=== PATIENT | male | born 1960 ===

== ENCOUNTER 2018-03-26 15:20 | Inpatient (IN) | payer MEDICAID ==
[2018-03-26] MEDS ORDERED: Sodium Chloride 0.9% 1,000 ML IV STA (16:32)
[2018-03-26] MEDS ORDERED: DiphenhydrAMINE 50 mg/ml Inj IV STA (16:32)
[2018-03-26] MEDS ORDERED: DiphenhydrAMINE 50 mg/ml Inj ONE (16:42)
[2018-03-26 16:48] LABS: BASO # 0.1 K/uL (0.0-0.2); BASO % 0.8 % (0.0-2.0); EOS # 0.2 K/uL (0.0-0.7); EOS % 2.9 % (0.0-4.0); HEMOGLOBIN 15.7 g/dL (12.0-18.0); LYMPH # 1.7 K/uL (1.0-4.3); LYMPH % 20.3 % (20.0-40.0); MEAN CELL VOLUME 85.3 fl (80.0-94.0); MEAN CORPUSCULAR HEMOGLOBIN 30.5 pg (27.0-31.0); MEAN CORPUSCULAR HGB CONC 35.8 g/dL (33.0-37.0); MEAN PLATELET VOLUME 8.7 fl (7.2-11.7); MONO # 0.6 K/uL (0.0-0.8); MONO % 6.8 % (0.0-10.0); NEUT # 5.7 K/uL (1.8-7.0); NEUT % 69.2 % (50.0-75.0); NRBC % 0.2 % (0.0-0.0); RBC 5.14 Mil/uL (4.40-5.90); RED CELL DISTRIBUTION WIDTH 13.1 % (11.5-14.5); WHITE BLOOD COUNT 8.2 K/uL (4.8-10.8)
[2018-03-26 16:56] LABS: BLOOD UREA NITROGEN 11 mg/dl (9-20); GFR AFRICAN-AMERICAN > 60; GFR NON-AFRICAN AMERICAN > 60
--- NOTE | 2018-03-26 17:12 | ED PDOC ---
"HPI: Headache Chief Complaint (Provider): headache History Per: Patient History/Exam Limitations: no limitations Onset/Duration Of Symptoms: Days (x3 weeks) Current Symptoms Are (Timing): Still Present Additional Complaint(s): Thad Garcia is a 58 year old male, with a past medical history of HTN, kidney stones, and migraines, who presents to the emergency department complaining of headache, and dizziness onset for x3 weeks associated with left sided arm numbness. Patient reports headache has been ongoing for x3 weeks, almost every day, it comes and goes and mostly on the left side associated with neck and back pain. Patient states last night he felt left arm numbness but no weakness. He also reports pain in right leg going on for x3 weeks. Patient further states dizziness worsens when he walks. Per , patient has been falling recently but with no head injury. He reports b/l ear ache but denies any chest pain, palpitations, fever, or chills. No further medical complaints. PMD: Salina Gonzalez J <Karen Hewitt A - Last Filed: 03/27/18 15:11> <Mally Perdue Y - Last Filed: 03/28/18 15:03> <Marley Stein J - Last Filed: 03/29/18 11:12> Time Seen by Provider: 03/26/18 16:20 Chief Complaint (Nursing): Headache Past Medical History Reviewed: Historical Data, Nursing Documentation, Vital Signs Vital Signs: Last Vital Signs Temp 98.4 F 03/26/18 15:36 Pulse 102 H 03/26/18 15:36 Resp 20 03/26/18 15:36 BP 152/92 H 03/26/18 15:36 Pulse Ox 98 03/26/18 15:36 - Medical History PMH: HTN, Migraine Other PMH: kidney stones - Surgical History Surgical History: No Surg Hx - Family History Family History: States: No Known Family Hx <Karen Hewitt - Last Filed: 03/27/18 15:11> Vital Signs: Last Vital Signs Temp 97.8 F 03/26/18 18:55 Pulse 68 03/26/18 21:58 Resp 17 03/26/18 21:58 BP 129/80 03/26/18 21:58 Pulse Ox 97 03/26/18 21:58 <Mally Perdue Y - Last Filed: 03/28/18 15:03> Vital Signs: Last Vital Signs Temp 97.7 F 03/26/18 22:46 Pulse 66 03/26/18 22:46 Resp 22 03/26/18 22:46 BP 154/88 H 03/26/18 22:46 Pulse Ox 100 03/26/18 22:46 <EmilMarley Carrasco - Last Filed: 03/29/18 11:12> - Home Medications Home Medications: Ambulatory Orders Medication Instructions Recorded Unobtainable 03/26/18 - Allergies Allergies/Adverse Reactions: Allergies Allergy/AdvReac Type Severity Reaction Status Date / Time No Known Allergies Allergy Verified 03/26/18 15:36 Review of Systems ROS Statement: Except As Marked, All Systems Reviewed And Found Negative Constitutional: Negative for: Fever ENT: Positive for: Ear Pain (b/l) Cardiovascular: Negative for: Chest Pain, Palpitations Musculoskeletal: Positive for: Neck Pain, Back Pain, Leg Pain (right) Neurological: Positive for: Numbness (left arm), Headache, Dizziness. Negative for: Weakness <Karen Hewitt - Last Filed: 03/27/18 15:11> Physical Exam - Reviewed Nursing Documentation Reviewed: Yes Vital Signs Reviewed: Yes - Physical Exam Appears: Positive for: Well (comfortable), No Acute Distress Head Exam: Positive for: ATRAUMATIC, NORMOCEPHALIC Skin: Positive for: Normal Color, Warm, Dry Eye Exam: Positive for: Normal appearance, EOMI, PERRL. Negative for: Nystagmus ENT: Positive for: Normal ENT Inspection Neck: Positive for: Painless ROM. Negative for: Normal (diffused tenderness on palpation paraspinally ) Cardiovascular/Chest: Positive for: Regular Rate, Rhythm. Negative for: Murmur Respiratory: Positive for: Normal Breath Sounds. Negative for: Respiratory Distress Gastrointestinal/Abdominal: Positive for: Normal Exam, Soft. Negative for: Tenderness Back: Positive for: Normal Inspection. Negative for: L CVA Tenderness, R CVA Tenderness, Vertebral Tenderness Extremity: Positive for: Normal ROM (upper and lower extremities). 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 Negative for: Motor/Sensory Deficits <Karen Hewitt A - Last Filed: 03/27/18 15:11> - Laboratory Results Result Diagrams: 03/27/18 05:55 03/27/18 05:55 - ECG O2 Sat by Pulse Oximetry: 98 (RA) Pulse Ox Interpretation: Normal <Karen Hewitt A - Last Filed: 03/27/18 15:11> - Laboratory Results Result Diagrams: 03/28/18 05:00 03/28/18 05:00 <Nette,Doloressonny Y - Last Filed: 03/28/18 15:03> - Laboratory Results Result Diagrams: 03/29/18 04:30 03/29/18 04:30 <Marley Stein - Last Filed: 03/29/18 11:12> Medical Decision Making Medical Decision Making: Initial Impression: headache, back pain, left arm numbness, vertigo. Differential includes: migraines, benign positional vertigo, cerebellar CVA, musculoskeletal pain Initial Plan: --Head w/o contrast [CT] --EKG --BMP --CMP --Troponin I --CBC w/ differential --Benadryl 25 mg IV --Toradol 30 mg IVP --Antivert 25 mg PO --Reglan 10 mg IVP --Sodium Chloride 1,000 ml 1,000 mls/hr 18:[address] FINDINGS: HEMORRHAGE: No intracranial hemorrhage. BRAIN: There is a ill-defined heterogeneous on mixed attenuation lesion in the right temporal lobe that is of uncertain etiology does associated with a very large amount of vasogenic edema that extends throughout most of the right cerebral hemisphere to the convexity. Findings are of uncertain etiology though possibility of a high-grade primary brain tumor must be considered. Followup pre and post-contrast MRI of the brain recommended for further evaluation. . These changes exert considerable surrounding mass effect with overlying sulcal effacement and compression of the right lateral ventricle which is shifted across midline with septum pellucidum. Midline shift estimated at approximately 14 mm. . Impending uncal herniation. Dilatation of the left lateral ventricle likely due to partial obstruction at the level of the left foramen of Monro. VENTRICLES: As above CALVARIUM: There are no acute calvarial fractures PARANASAL SINUSES: Unremarkable as visualized. No significant inflammatory changes. MASTOID AIR CELLS: Unremarkable as visualized. No inflammatory changes. OTHER FINDINGS: None. IMPRESSION: There is an apparent heterogeneous lesion in the right temporal lobe which is associate with a very large amount of vasogenic white matter edema that extends superiorly to the level of the vertex. Findings are of uncertain etiology however high-grade primary brain tumor should be excluded. . Infection on would be less likely to reduce the amount of vasogenic edema that is present. Pre and post-contrast MRI of the brain recommended for further evaluation. . There is considerable surrounding mass effect with shift of the midline from right to left estimated approximately 14 mm. . Impending uncal herniation. Findings discussed with Dr. Hewitt at approximately 6:10 p.m. with written down and read back verification. 18:[address] Bay who recommends getting an MRI and admitting patient. No interventions have been recommended at this time. 18:46 Dr. Watt consulted and agrees with plan to request MRI and admit to hospital. He recommends giving Keppra and decadron. He agrees patient is table for telemetry given chronic symptoms. Dr. Clemons also agrees to admit patient. Dr. Gonzalez was contacted 3 times on 2 phone numbers but lines were busy. Scribe Attestation: Documented by Keshawn Fernandez and Miki Hamilton, acting as a scribe for Karen Hewitt MD Provider Scribe Attestation: All medical record entries made by the Scribe were at my direction and personally dictated by me. I have reviewed the chart and agree that the record accurately reflects my personal performance of the history, physical exam, medical decision making, and the department course for this patient. I have also personally directed, reviewed, and agree with the discharge instructions and disposition. <Karen Hewitt - Last Filed: 03/27/18 15:11> Disposition - Patient ED Disposition Is Patient to be Admitted: Yes Discussed With : Ceci Clemons Doctor Will See Patient In The: Hospital Counseled Patient/Family Regarding: Studies Performed, Diagnosis - Disposition Disposition Time: 18:00 - Pt Status Changed To: Hospital Disposition Of: Inpatient - Admit Certification Admit to Inpatient:: After my assessment, the patient will require hospitalization for at least two midnights. This is because of the severity of symptoms shown, intensity of services needed, and/or the medical risk in this patient being treated as an outpatient. - POA Present On Arrival: None <Karen Hewitt - Last Filed: 03/27/18 15:11> - Patient ED Disposition Is Patient to be Admitted: No - Disposition Disposition: Routine/Home Disposition Time: 22:14 <Mally Perdue - Last Filed: 03/28/18 15:03> <Marley Stein - Last Filed: 03/29/18 11:12> - Clinical Impression Clinical Impression: Brain mass, Severe headache - Disposition Condition: FAIR Addendum Addendum: answered questions to pt and family re the findings on CT. made arrangements for pt to be admitted to icu. 03/26/18 22:10 20:33 MRI FINDINGS: BRAIN: 3 x 4.4 cm right anterior temporal enhancing mass with associated edema with mass effect and 1.4 cm right to left midline shift. VENTRICLES: left lateral ventricle is asymmetrically enlarged BONES/JOINTS: Unremarkable. SINUSES: Unremarkable as visualized. No acute sinusitis. MASTOID AIR CELLS: Unremarkable as visualized. No mastoid effusion. ORBITS: Unremarkable as visualized. IMPRESSION: [place] DAVEORIO | Preliminary Radiology Report EXTENSION COURSE COORDINATOR (QA) DISCREPANCY? If there is a discrepancy between the preliminary and final interpretation, please notify [facility] via [email or web address]. If you do not have access to our QA portal, call our QA team at [phone] CONFIDENTIALITY STATEMENT This report is intended only for the use of the referring physician, and only in accordance with law, If you received this in error, call [phone] Page 2 of 2 3 x 4.4 cm right anterior temporal enhancing mass with associated edema with mass effect and 1.4 cm right to left midline shift. 20:53 Patient and family were informed about diagnosis. Patient was upgraded to ICU. Dr. Clemons and Dr. Pitt were consulted about patient. 22:13 Upon provider reevaluation patient is feeling better, is medically stable, and requires no further treatment in the ED at this time. Counseling was provided and all questions were answered regarding diagnosis. There is agreement to discharge plan. Return if symptoms persist or worsen. <Mally Perdue Y - Last Filed: 03/28/18 15:03> Addendum: 20:[address] Herrera, neurosurgery head of loss prevention, who look at MRI and believes no surgical intervention at this time. Agree with prior plan for steroids and keppra and patient to be admitted for workup and further neuro checks. Informed patient will go to ICU. 03/26/18 23:40 PLEASE NOTE: The statement above was written by Tonja under my name. However it was intended to be written for Dr Hewitt. I was not involved in the care of this patient 03/29/18 11:11 <Marley Stein J - Last Filed: 03/29/18 11:12>"
--- NOTE | 2018-03-26 18:08 | CT ---
PROCEDURE: CT HEAD WITHOUT CONTRAST. HISTORY: Dizziness COMPARISON: None available. TECHNIQUE: Axial computed tomography images were obtained through the head/brain without intravenous contrast. Radiation dose: Total exam DLP = 1154.4 mGy-cm. This CT exam was performed using one or more of the following dose reduction techniques: Automated exposure control, adjustment of the mA and/or kV according to patient size, and/or use of iterative reconstruction technique. FINDINGS: HEMORRHAGE: No intracranial hemorrhage. BRAIN: There is a ill-defined heterogeneous on mixed attenuation lesion in the right temporal lobe that is of uncertain etiology does associated with a very large amount of vasogenic edema that extends throughout most of the right cerebral hemisphere to the convexity. Findings are of uncertain etiology though possibility of a high-grade primary brain tumor must be considered. Followup pre and post-contrast MRI of the brain recommended for further evaluation. . These changes exert considerable surrounding mass effect with overlying sulcal effacement and compression of the right lateral ventricle which is shifted across midline with septum pellucidum. Midline shift estimated at approximately 14 mm. . Impending uncal herniation. Dilatation of the left lateral ventricle likely due to partial obstruction at the level of the left foramen of Monro. VENTRICLES: As above CALVARIUM: There are no acute calvarial fractures PARANASAL SINUSES: Unremarkable as visualized. No significant inflammatory changes. MASTOID AIR CELLS: Unremarkable as visualized. No inflammatory changes. OTHER FINDINGS: None. IMPRESSION: There is an apparent heterogeneous lesion in the right temporal lobe which is associate with a very large amount of vasogenic white matter edema that extends superiorly to the level of the vertex. Findings are of uncertain etiology however high-grade primary brain tumor should be excluded. . Infection on would be less likely to reduce the amount of vasogenic edema that is present. Pre and post-contrast MRI of the brain recommended for further evaluation. . There is considerable surrounding mass effect with shift of the midline from right to left estimated approximately 14 mm. . Impending uncal herniation. Findings discussed with Dr. Hewitt at approximately 6:10 p.m. with written down and read back verification.
[2018-03-26] MEDS ORDERED: levETIRAcetam 500 MG in Sodium Chloride 0.9% 100 ML IVPB ONE (18:30)
[2018-03-26] MEDS ORDERED: Dexamethasone 10 MG in Sodium Chloride 0.9% 50 ML IV ONE (18:30)
[2018-03-26] MEDS ORDERED: Gadodiamide 287 MG/ML VIAL (15ML) IV ONE (19:01)
--- NOTE | 2018-03-26 21:06 | CP.PCM.CON ---
History of Present Illness - History of Present Illness History of Present Illness: Attending: Dr Kaci KNOWLESD: charlene Gonzalez MD Reason for consult: Critical care management The Patient was seen and examined in the ED HPI: The Hx was obtained from the Patient's family, the patient and after review of the medical records. He is a 58 years old male with hx of HTN , Migraine and arthritis of the right knee. He comes with 3-4 months of worsening headaches around the left temperal and occipital regions, with dizziness worse on ambulation, ringing in both ears and unsteady gait because of his right leg being unsteady causing him to fall. On the night prior to this admission, his left upper extremity became numb and weak. This weakness resolved before coming to the ED today. There is no hx of head injury, no chest pain although he refers diffuse abdominal pains, no fever, chills PMH: HTN; Migraine; Kidney stone; Arthritis of the right knee; Osteopenia PSH: lithotripsy left kidney, SH: Never Smoked; No Alcohol; no illegal drug use FH: States: No known family history Allergies: NKDA Medications: Denies Review of Systems - Constitutional Constitutional: Frequent Falls, Headache, Weakness. absent: Fever, Lethargy, Weight Loss - EENT Eyes: Requires Corrective Lenses. absent: Itchy Eyes, Loss of Peripheral Vision , Photophobia, Sees Flashes Ears: Dizziness. absent: Decreased Hearing, Ear Discharge, Ear Pain, Tinnitus Nose/Mouth/Throat: absent: Epistaxis, Nasal Congestion, Nasal Discharge - Respiratory Respiratory: absent: Cough, Dyspnea, Wheezing, Snoring, Stridor - Gastrointestinal Gastrointestinal: absent: Constipation, Diarrhea, Nausea, Vomiting - Genitourinary Genitourinary: absent: Dysuria, Flank Pain, Hematuria, Urinary Frequency, Urinary Hesitance - Musculoskeletal Musculoskeletal: Arthralgias, Joint Swelling, Muscle Weakness - Integumentary Integumentary: absent: Pruritus, Rash, Skin Ulcer, Sores, Striae, Swelling - Neurological Neurological: Dizziness, Frequent Falls, Headaches, Vertigo, Weakness. absent: Confusion, Focal Weakness - Psychiatric Psychiatric: absent: Anxiety, Depression, Panic Attacks - Endocrine Endocrine: absent: Palpitations, Polydipsia, Polyphagia, Polyuria - Hematologic/Lymphatic Hematologic: absent: Easy Bleeding, Easy Bruising Past Patient History - Past Social History Smoking Status: Never Smoked Chewing Tobacco Use: No Cigar Use: No Alcohol: None Drugs: Denies Home Situation {Lives}: With Family - CARDIAC Hx Hypertension: Yes - PULMONARY Hx Respiratory Disorders: No - NEUROLOGICAL Hx Migraine: Yes - HEENT Hx HEENT Problems: No - RENAL Hx Chronic Kidney Disease: No - ENDOCRINE/METABOLIC Hx Endocrine Disorders: No - HEMATOLOGICAL/ONCOLOGICAL Hx Blood Disorders: No - MUSCULOSKELETAL/RHEUMATOLOGICAL Hx Arthritis: Yes (Right Knee) - GASTROINTESTINAL Hx Gastrointestinal Disorders: No - GENITOURINARY/GYNECOLOGICAL Hx Genitourinary Disorders: No - PSYCHIATRIC Hx Psychophysiologic Disorder: No Hx Substance Use: No Other/Comment: Ostopenia - SURGICAL HISTORY Hx Surgeries: Yes Other/Comment: Lithotripsy - ANESTHESIA Hx Anesthesia: Yes Hx Anesthesia Reactions: No Meds Allergies/Adverse Reactions: Allergies Allergy/AdvReac Type Severity Reaction Status Date / Time No Known Allergies Allergy Verified 03/26/18 15:36 - Medications Medications: Current Medications Dexamethasone (Decadron Inj) 4 mg IVP Q6H KARO Levetiracetam 500 mg/ Sodium (Chloride) 105 mls @ 210 mls/hr IVPB Q12 KARO Physical Exam - Constitutional Appears: No Acute Distress - Head Exam Head Exam: ATRAUMATIC, NORMAL INSPECTION, NORMOCEPHALIC - Eye Exam Eye Exam: EOMI, PERRL Pupil Exam: NORMAL ACCOMODATION, PERRL - ENT Exam ENT Exam: Mucous Membranes Moist, Normal Exam, Normal External Ear Exam - Neck Exam Neck exam: Positive for: Full Rom, Normal Inspection. Negative for: Lymphadenopathy, Tenderness - Respiratory Exam Respiratory Exam: Clear to Auscultation Bilateral. absent: Rales, Rhonchi, Wheezes - Cardiovascular Exam Cardiovascular Exam: REGULAR RHYTHM, RRR, +S1, +S2. absent: Gallop - GI/Abdominal Exam GI & Abdominal Exam: Normal Bowel Sounds, Soft Additional comments: Full, non tender, +ve bowel sounds - Rectal Exam Rectal Exam: Deferred - Extremities Exam Extremities exam: Positive for: normal inspection. Negative for: calf tenderness, joint swelling, pedal edema - Back Exam Back exam: NORMAL INSPECTION. absent: CVA tenderness (L), CVA tenderness (R) - Neurological Exam Neurological exam: Alert, CN II-XII Intact, Oriented x3, Reflexes Normal Additional comments: Clear speech, No facial droop, Motor strength 5/5 at all extremities - Psychiatric Exam Psychiatric exam: Normal Affect, Normal Mood - Skin Skin Exam: Dry, Intact, Normal Color, Warm Results - Vital Signs Recent Vital Signs: Last Vital Signs Temp 97.8 F 03/26/18 18:55 Pulse 71 03/26/18 21:01 Resp 18 03/26/18 21:01 BP 140/100 H 03/26/18 21:01 Pulse Ox 97 03/26/18 21:01 - Labs Result Diagrams: 03/26/18 16:38 03/26/18 16:38 Labs: Laboratory Results - last 24 hr 03/26/18 03/26/18 16:38 16:38 WBC 8.2 RBC 5.14 Hgb 15.7 Hct 43.8 MCV 85.3 MCH 30.5 MCHC 35.8 RDW 13.1 Plt Count 223 MPV 8.7 Neut % (Auto) 69.2 Lymph % (Auto) 20.3 Mcnairy % (Auto) 6.8 Eos % (Auto) 2.9 Baso % (Auto) 0.8 Neut # (Auto) 5.7 Lymph # (Auto) 1.7 Mcnairy # (Auto) 0.6 Eos # (Auto) 0.2 Baso # (Auto) 0.1 Sodium 141 Potassium 3.6 Chloride 104 Carbon Dioxide 19 L Anion Gap 22 H BUN 11 Creatinine 0.7 L Est GFR ( Amer) > 60 Est GFR (Non-Af Amer) > 60 Random Glucose 116 H Calcium 10.0 Troponin I 0.0140 - Imaging and Cardiology MRI - head Status: Image reviewed by me, Report reviewed by me Additional comment: EXAM: MR Head Without and With Intravenous Contrast EXAM DATE/TIME: Examination ordered 03/26/2018 6:27 PM. Image number total count reviewed 314 FINDINGS: BRAIN: 3 x 4.4 cm right anterior temporal enhancing mass with associated edema with mass effect and 1.4 cm right to left midline shift. VENTRICLES: left lateral ventricle is asymmetrically enlarged BONES/JOINTS: Unremarkable. SINUSES: Unremarkable as visualized. No acute sinusitis. MASTOID AIR CELLS: Unremarkable as visualized. No mastoid effusion. ORBITS: Unremarkable as visualized. IMPRESSION: 3 x 4.4 cm right anterior temporal enhancing mass with associated edema with mass effect and 1.4 cm right to left midline shift. CT scan - head Status: Image reviewed by me, Report reviewed by me Additional comment: 18:[address] FINDINGS: HEMORRHAGE: No intracranial hemorrhage. BRAIN: There is a ill-defined heterogeneous on mixed attenuation lesion in the right temporal lobe that is of uncertain etiology does associated with a very large amount of vasogenic edema that extends throughout most of the right cerebral hemisphere to the convexity. Findings are of uncertain etiology though possibility of a high-grade primary brain tumor must be considered. Followup pre and post-contrast MRI of the brain recommended for further evaluation. . These changes exert considerable surrounding mass effect with overlying sulcal effacement and compression of the right lateral ventricle which is shifted across midline with septum pellucidum. Midline shift estimated at approximately 14 mm. . Impending uncal herniation. Dilatation of the left lateral ventricle likely due to partial obstruction at the level of the left foramen of Monro. VENTRICLES: As above CALVARIUM: There are no acute calvarial fractures PARANASAL SINUSES: Unremarkable as visualized. No significant inflammatory changes. MASTOID AIR CELLS: Unremarkable as visualized. No inflammatory changes. OTHER FINDINGS: None. IMPRESSION: There is an apparent heterogeneous lesion in the right temporal lobe which is associate with a very large amount of vasogenic white matter edema that extends superiorly to the level of the vertex. Findings are of uncertain etiology however high-grade primary brain tumor should be excluded. . Infection on would be less likely to reduce the amount of vasogenic edema that is present. Pre and post-contrast MRI of the brain recommended for further evaluation. . There is considerable surrounding mass effect with shift of the midline from right to left estimated approximately 14 mm. . Impending uncal herniation. Assessment & Plan - Assessment and Plan (Free Text) Assessment: #. Headache #. Brain mass #. Left Arm numbness #. HTN #. Osteoarthrosis of the right knee Plan: 58 years old male with hx of HTN, Migraine and arthritis of the right knee. He comes with 3-4 months of worsening headaches around the left temperal and occipital regions, with dizziness worse on ambulation, ringing in both ears and unsteady gait because of his right leg being unsteady causing him to fall. On the night prior to this admission, his left upper extremity became numb and weak. This weakness resolved before coming to the ED today. #. Intractible Headache due to the brain mass - Treat brain mass - Analgesics #. Brain mass - MRI brain done - CT brain done - Consult Neurosurgery Dr Hunt - Consult Dr Watt Neurology - Swallow evaluation - Minerva - Chelly as Seizure prophylaxis - PT/OT when stable #. Left Arm numbness as neurolgical deficit from the brain mass. This has resolved - Neurology following #. HTN - IV labetalol if needed - Follow blood pressures #. Osteoarthrosis of the right knee - pain management #. DVT prophylaxis with SCD #. Code Status: Full - Date & Time Date: 03/26/18 Time: 21:06
[2018-03-26] MEDS ORDERED: Dexamethasone 4 MG in Sodium Chloride 0.9% 50 ML IVPB SCH (22:00)
[2018-03-26] MEDS ORDERED: Potassium Chl 20 mEq in NS 1,000 ML IV SCH (23:15)
[2018-03-26] MEDS ORDERED: Sodium Chloride 0.9% 1,000 ML IV SCH (23:15)
[2018-03-27 00:53] VITALS: BMI 42.7
[2018-03-27] MEDS ORDERED: Dexamethasone 10 MG in Dextrose 5% In Water 50 ML IVP SCH (01:00)
[2018-03-27] MEDS: Dexamethasone 4 mg/1 ml IVP SCH ×4 (02:18→20:18)
[2018-03-27] MEDS ORDERED: Pneumococcal 23-Valent Vaccine IM ONE (04:00)
[2018-03-27 05:23] LABS: PROTHROMBIN TIME 10.9 Seconds (9.8-13.1)
[2018-03-27 05:24] LABS: PARTIAL THROMBOPLASTIN TIME 28.3 Seconds (25.6-37.1)
[2018-03-27 06:11] LABS: HEMOGLOBIN 15.4 g/dL (12.0-18.0); MEAN CELL VOLUME 85.7 fl (80.0-94.0); MEAN CORPUSCULAR HEMOGLOBIN 30.2 pg (27.0-31.0); MEAN CORPUSCULAR HGB CONC 35.2 g/dL (33.0-37.0); RBC 5.11 Mil/uL (4.40-5.90); RED CELL DISTRIBUTION WIDTH 13.1 % (11.5-14.5); WHITE BLOOD COUNT 8.1 K/uL (4.8-10.8)
[2018-03-27 06:21] LABS: BLOOD UREA NITROGEN 13 mg/dl (9-20); CALCIUM 10.1 mg/dL (8.4-10.2); GFR AFRICAN-AMERICAN > 60; GFR NON-AFRICAN AMERICAN > 60
[2018-03-27] MEDS: levETIRAcetam 500 MG in Sodium Chloride 0.9% 100 ML IVPB SCH ×2 (08:35→20:25)
--- NOTE | 2018-03-27 09:57 | CP.CCUPN ---
<KunalstephanSal - Last Filed: 03/27/18 12:56> CCU Subjective - Physician Review Events Since Last Encounter (Free Text): 03/27/18 11:06 pt seen and examined at bedside this morning. No acute events overnight. Pt reports left arm numbness has resolved. Mild headache remains, no acute changes. No new complaints. CCU Objective - Vital Signs / Intake & Output Vital Signs (Last 4 hours): Vital Signs Temp Pulse Resp BP Pulse Ox 03/27/18 09:00 110 H 18 134/81 96 03/27/18 08:00 97.9 F 105 H 13 137/82 97 03/27/18 06:30 83 12 147/100 H 98 03/27/18 06:00 83 20 150/47 L 96 Intake and Output (Last 8hrs): Intake & Output 03/26/18 03/27/18 03/27/18 22:59 06:59 14:59 Intake Total 0 590 75 Output Total 800 Balance 0 -210 75 Weight 122.47 kg 123.831 kg Intake: IV 0 590 75 Oral 0 Output: Urine 800 Urine, Voided 800 Other: # Bowel Movements 0 - Physical Exam Head: Positive for: Atraumatic, Normocephalic Pupils: Positive for: PERRL Extroacular Muscles: Positive for: EOMI Conjunctiva: Positive for: Normal Mouth: Positive for: Moist Mucous Membranes Neck: Positive for: Normal Range of Motion. Negative for: Meningeal Signs, JVD Respiratory/Chest: Positive for: Clear to Auscultation, Good Air Exchange. Negative for: Respiratory Distress, Accessory Muscle Use, Wheezes, Rales, Rhonchi Cardiovascular: Positive for: Regular Rate and Rhythm, Normal S1, S2. Negative for: Murmurs, Tachycardic, Bradycardic Abdomen: Positive for: Normal Bowel Sounds. Negative for: Tenderness, Distention, Peritoneal Signs Upper Extremity: Positive for: Normal Inspection, Neurovascularly Intact, Capillary Refill < 2s. Negative for: Cyanosis, Edema Lower Extremity: Positive for: Normal Inspection, NORMAL PULSES, Neurovascularly Intact. Negative for: Edema, CALF TENDERNESS Neurological: Positive for: GCS=15, CN II-XII Intact, Speech Normal, Normal Cerebellar Funct, Norm Deep Tendon Reflexes Skin: Positive for: Warm, Dry, Normal Color. Negative for: Rashes Psychiatric: Positive for: Alert, Oriented x 3, Normal Insight, Normal Concentration - Medications Active Medications: Active Medications Generic Name Dose Route Start Last Admin Trade Name Freq PRN Reason Stop Dose Admin Dexamethasone 4 mg 03/26/18 20:30 03/27/18 08:36 Decadron Inj IVP 4 mg Q6H KARO Administration Levetiracetam 500 mg/ Sodium 105 mls @ 210 mls/hr 03/26/18 21:00 03/27/18 08: 35 Chloride IVPB 210 mls/hr Q12 KARO Administration Potassium Chloride/Sodium Chloride 1,000 mls @ 75 mls/hr 03/26/18 23:15 03/26 23:50 Potassium Chl 20 Meq In Ns IV 75 mls/hr .[id number] KARO Administration Metoclopramide HCl 10 mg 03/26/18 23:00 Reglan IVP Q6 PRN Nausea/Vomiting - Patient Studies Lab Studies: Lab Studies 03/27/18 03/27/18 03/27/18 Range/Units 05:55 05:55 04:20 WBC 8.1 (4.8-10.8) K/uL RBC 5.11 (4.40-5.90) Mil/uL Hgb 15.4 (12.0-18.0) g/dL Hct 43.9 (35.0-51.0) % MCV 85.7 (80.0-94.0) fl MCH 30.2 (27.0-31.0) pg MCHC 35.2 (33.0-37.0) g/dL RDW 13.1 (11.5-14.5) % Plt Count 225 (130-400) K/uL MPV (7.2-11.7) fl Neut % (Auto) (50.0-75.0) % Lymph % (Auto) (20.0-40.0) % [place] % (Auto) (0.0-10.0) % Eos % (Auto) (0.0-4.0) % Baso % (Auto) (0.0-2.0) % Neut # (Auto) (1.8-7.0) K/uL Lymph # (Auto) (1.0-4.3) K/uL [place] # (Auto) (0.0-0.8) K/uL Eos # (Auto) (0.0-0.7) K/uL Baso # (Auto) (0.0-0.2) K/uL PT 10.9 (9.8-13.1) Seconds INR 1.0 (0.9-1.2) APTT 28.3 (25.6-37.1) Seconds Sodium 143 (132-148) mmol/l Potassium 3.9 (3.6-5.0) MMOL/L Chloride 106 (98-107) mmol/L Carbon Dioxide 19 L (22-30) mmol/L Anion Gap 22 H (10-20) BUN 13 (9-20) mg/dl Creatinine 0.8 (0.8-1.5) mg/dl Est GFR ( Amer) > 60 Est GFR (Non-Af Amer) > 60 Random Glucose 160 H (75-110) mg/dL Calcium 10.1 (8.4-10.2) mg/dL Troponin I (0.00-0.120) ng/mL 03/26/18 03/26/18 Range/Units 16:38 16:38 WBC 8.2 (4.8-10.8) K/uL RBC 5.14 (4.40-5.90) Mil/uL Hgb 15.7 (12.0-18.0) g/dL Hct 43.8 (35.0-51.0) % MCV 85.3 (80.0-94.0) fl MCH 30.5 (27.0-31.0) pg MCHC 35.8 (33.0-37.0) g/dL RDW 13.1 (11.5-14.5) % Plt Count 223 (130-400) K/uL MPV 8.7 (7.2-11.7) fl Neut % (Auto) 69.2 (50.0-75.0) % Lymph % (Auto) 20.3 (20.0-40.0) % [place] % (Auto) 6.8 (0.0-10.0) % Eos % (Auto) 2.9 (0.0-4.0) % Baso % (Auto) 0.8 (0.0-2.0) % Neut # (Auto) 5.7 (1.8-7.0) K/uL Lymph # (Auto) 1.7 (1.0-4.3) K/uL [place] # (Auto) 0.6 (0.0-0.8) K/uL Eos # (Auto) 0.2 (0.0-0.7) K/uL Baso # (Auto) 0.1 (0.0-0.2) K/uL PT (9.8-13.1) Seconds INR (0.9-1.2) APTT (25.6-37.1) Seconds Sodium 141 (132-148) mmol/l Potassium 3.6 (3.6-5.0) MMOL/L Chloride 104 (98-107) mmol/L Carbon Dioxide 19 L (22-30) mmol/L Anion Gap 22 H (10-20) BUN 11 (9-20) mg/dl Creatinine 0.7 L (0.8-1.5) mg/dl Est GFR ( Amer) > 60 Est GFR (Non-Af Amer) > 60 Random Glucose 116 H (75-110) mg/dL Calcium 10.0 (8.4-10.2) mg/dL Troponin I 0.0140 (0.00-0.120) ng/mL Laboratory Results - last 24 hr 03/26/18 03/26/18 03/27/18 16:38 16:38 04:20 WBC 8.2 RBC 5.14 Hgb 15.7 Hct 43.8 MCV 85.3 MCH 30.5 MCHC 35.8 RDW 13.1 Plt Count 223 MPV 8.7 Neut % (Auto) 69.2 Lymph % (Auto) 20.3 [place] % (Auto) 6.8 Eos % (Auto) 2.9 Baso % (Auto) 0.8 Neut # (Auto) 5.7 Lymph # (Auto) 1.7 [place] # (Auto) 0.6 Eos # (Auto) 0.2 Baso # (Auto) 0.1 PT 10.9 INR 1.0 APTT 28.3 Sodium 141 Potassium 3.6 Chloride 104 Carbon Dioxide 19 L Anion Gap 22 H BUN 11 Creatinine 0.7 L Est GFR ( Amer) > 60 Est GFR (Non-Af Amer) > 60 Random Glucose 116 H Calcium 10.0 Troponin I 0.0140 03/27/18 03/27/18 05:55 05:55 WBC 8.1 RBC 5.11 Hgb 15.4 Hct 43.9 MCV 85.7 MCH 30.2 MCHC 35.2 RDW 13.1 Plt Count 225 MPV Neut % (Auto) Lymph % (Auto) [place] % (Auto) Eos % (Auto) Baso % (Auto) Neut # (Auto) Lymph # (Auto) [place] # (Auto) Eos # (Auto) Baso # (Auto) PT INR APTT Sodium 143 Potassium 3.9 Chloride 106 Carbon Dioxide 19 L Anion Gap 22 H BUN 13 Creatinine 0.8 Est GFR ( Amer) > 60 Est GFR (Non-Af Amer) > 60 Random Glucose 160 H Calcium 10.1 Troponin I EKG/Cardiology Studies: Cardiology / EKG Studies 03/26/18 16:30 ELECTROCARDIOGRAM Stat Comment: Mode Of Transportation: Reason For Exam: dizziness Review of Systems - EENT Eyes: UNREMARKABLE Ears: UNREMARKABLE Nose/Mouth/Throat: UNREMARKABLE - Cardiovascular Cardiovascular: UNREMARKABLE - Respiratory Respiratory: UNREMARKABLE - Gastrointestinal Gastrointestinal: UNREMARKABLE - Reproductive: Male Reproductive:Male: UNREMARKABLE - Musculoskeletal Musculoskeletal: UNREMARKABLE - Neurological Neurological: Headaches. absent: Abnormal Gait, Abnormal Hearing, Abnormal Speech, Dizziness, Numbness, Lack of Coordination, Loss of Vision, Paresthesias Critical Care Progress Note - Ventilator Checklist Head of Bed 30 Degrees: Yes Daily Sedation Vacation: No Daily Assessment of Readiness to Wean: No Daily Spontaneous Breathing Trial: No - Extremities/Vascular Does the Patient have a Central Venous Catheter?: No Does the Patient have a Dennis Catheter?: No - Nutrition Nutrition: Nutrition Category Date Time Status NPO Diet [DIET] Diets 03/26/18 Dinner Active Assessment/Plan - Assessment and Plan (Free Text) Assessment: 58 y/o male with PMHx of HTN, migraines, knee OA admitted for right temporal mass with 14 mm midline shift. Plan: 1) Right Temporal Mass with 14mm Midline Shift and Edema -neurosurgery consult: for surgery (craniotomy) for suspected glioblastoma on -repeat head CT pending -IV Decadron for cerebral edema -pain control 2) Hypertension -monitor vitals -Labetalol PRN 3) Migraines -chronic -pain control 4) DVT Prophylaxis -SCDs 5) Diet -heart healthy -NPO after midnight 6) Code Status -Full Code <Alex Curiel - Last Filed: 03/27/18 15:19> CCU Objective - Vital Signs / Intake & Output Vital Signs (Last 4 hours): Vital Signs Temp Pulse Resp BP Pulse Ox 03/27/18 14:00 115 H 21 143/93 H 96 03/27/18 12:00 98.6 F 106 H 16 147/71 96 Intake and Output (Last 8hrs): Intake & Output 03/26/18 03/27/18 03/27/18 22:59 06:59 14:59 Intake Total 0 590 730 Output Total 800 500 Balance 0 -210 230 Weight 270 lb 273 lb Intake: IV 0 590 150 Intake, Piggyback 100 Oral 0 480 Output: Urine 800 500 Urine, Voided 800 500 Other: # Bowel Movements 0 - Medications Active Medications: Active Medications Generic Name Dose Route Start Last Admin Trade Name Freq PRN Reason Stop Dose Admin Acetaminophen 650 mg 03/27/18 11:05 Tylenol 325mg Tab PO Q6 PRN Headache Dexamethasone 4 mg 03/26/18 20:30 03/27/18 08:36 Decadron Inj IVP 4 mg Q6H KARO Administration Levetiracetam 500 mg/ Sodium 105 mls @ 210 mls/hr 03/26/18 21:00 03/27/18 08: 35 Chloride IVPB 210 mls/hr Q12 KARO Administration Potassium Chloride/Sodium Chloride 1,000 mls @ 75 mls/hr 03/26/18 23:15 03/26 23:50 Potassium Chl 20 Meq In Ns IV 75 mls/hr .[id number] KARO Administration Metoclopramide HCl 10 mg 03/26/18 23:00 Reglan IVP Q6 PRN Nausea/Vomiting - Patient Studies Lab Studies: Lab Studies 03/27/18 03/27/18 03/27/18 Range/Units 12:30 05:55 05:55 WBC 8.1 (4.8-10.8) K/uL RBC 5.11 (4.40-5.90) Mil/uL Hgb 15.4 (12.0-18.0) g/dL Hct 43.9 (35.0-51.0) % MCV 85.7 (80.0-94.0) fl MCH 30.2 (27.0-31.0) pg MCHC 35.2 (33.0-37.0) g/dL RDW 13.1 (11.5-14.5) % Plt Count 225 (130-400) K/uL MPV (7.2-11.7) fl Neut % (Auto) (50.0-75.0) % Lymph % (Auto) (20.0-40.0) % [place] % (Auto) (0.0-10.0) % Eos % (Auto) (0.0-4.0) % Baso % (Auto) (0.0-2.0) % Neut # (Auto) (1.8-7.0) K/uL Lymph # (Auto) (1.0-4.3) K/uL [place] # (Auto) (0.0-0.8) K/uL Eos # (Auto) (0.0-0.7) K/uL Baso # (Auto) (0.0-0.2) K/uL PT (9.8-13.1) Seconds INR (0.9-1.2) APTT (25.6-37.1) Seconds Sodium 143 (132-148) mmol/l Potassium 3.9 (3.6-5.0) MMOL/L Chloride 106 (98-107) mmol/L Carbon Dioxide 19 L (22-30) mmol/L Anion Gap 22 H (10-20) BUN 13 (9-20) mg/dl Creatinine 0.8 (0.8-1.5) mg/dl Est GFR ( Amer) > 60 Est GFR (Non-Af Amer) > 60 Random Glucose 160 H (75-110) mg/dL Calcium 10.1 (8.4-10.2) mg/dL Troponin I (0.00-0.120) ng/mL Blood Type O POSITIVE Antibody Screen Negative BBK History Checked No verified bt 03/27/18 03/26/18 03/26/18 Range/Units 04:20 16:38 16:38 WBC 8.2 (4.8-10.8) K/uL RBC 5.14 (4.40-5.90) Mil/uL Hgb 15.7 (12.0-18.0) g/dL Hct 43.8 (35.0-51.0) % MCV 85.3 (80.0-94.0) fl MCH 30.5 (27.0-31.0) pg MCHC 35.8 (33.0-37.0) g/dL RDW 13.1 (11.5-14.5) % Plt Count 223 (130-400) K/uL MPV 8.7 (7.2-11.7) fl Neut % (Auto) 69.2 (50.0-75.0) % Lymph % (Auto) 20.3 (20.0-40.0) % [place] % (Auto) 6.8 (0.0-10.0) % Eos % (Auto) 2.9 (0.0-4.0) % Baso % (Auto) 0.8 (0.0-2.0) % Neut # (Auto) 5.7 (1.8-7.0) K/uL Lymph # (Auto) 1.7 (1.0-4.3) K/uL [place] # (Auto) 0.6 (0.0-0.8) K/uL Eos # (Auto) 0.2 (0.0-0.7) K/uL Baso # (Auto) 0.1 (0.0-0.2) K/uL PT 10.9 (9.8-13.1) Seconds INR 1.0 (0.9-1.2) APTT 28.3 (25.6-37.1) Seconds Sodium 141 (132-148) mmol/l Potassium 3.6 (3.6-5.0) MMOL/L Chloride 104 (98-107) mmol/L Carbon Dioxide 19 L (22-30) mmol/L Anion Gap 22 H (10-20) BUN 11 (9-20) mg/dl Creatinine 0.7 L (0.8-1.5) mg/dl Est GFR ( Amer) > 60 Est GFR (Non-Af Amer) > 60 Random Glucose 116 H (75-110) mg/dL Calcium 10.0 (8.4-10.2) mg/dL Troponin I 0.0140 (0.00-0.120) ng/mL Blood Type Antibody Screen BBK History Checked Laboratory Results - last 24 hr 03/26/18 03/26/18 03/27/18 16:38 16:38 04:20 WBC 8.2 RBC 5.14 Hgb 15.7 Hct 43.8 MCV 85.3 MCH 30.5 MCHC 35.8 RDW 13.1 Plt Count 223 MPV 8.7 Neut % (Auto) 69.2 Lymph % (Auto) 20.3 [place] % (Auto) 6.8 Eos % (Auto) 2.9 Baso % (Auto) 0.8 Neut # (Auto) 5.7 Lymph # (Auto) 1.7 [place] # (Auto) 0.6 Eos # (Auto) 0.2 Baso # (Auto) 0.1 PT 10.9 INR 1.0 APTT 28.3 Sodium 141 Potassium 3.6 Chloride 104 Carbon Dioxide 19 L Anion Gap 22 H BUN 11 Creatinine 0.7 L Est GFR ( Amer) > 60 Est GFR (Non-Af Amer) > 60 Random Glucose 116 H Calcium 10.0 Troponin I 0.0140 Blood Type Antibody Screen BBK History Checked 03/27/18 03/27/18 03/27/18 05:55 05:55 12:30 WBC 8.1 RBC 5.11 Hgb 15.4 Hct 43.9 MCV 85.7 MCH 30.2 MCHC 35.2 RDW 13.1 Plt Count 225 MPV Neut % (Auto) Lymph % (Auto) [place] % (Auto) Eos % (Auto) Baso % (Auto) Neut # (Auto) Lymph # (Auto) [place] # (Auto) Eos # (Auto) Baso # (Auto) PT INR APTT Sodium 143 Potassium 3.9 Chloride 106 Carbon Dioxide 19 L Anion Gap 22 H BUN 13 Creatinine 0.8 Est GFR ( Amer) > 60 Est GFR (Non-Af Amer) > 60 Random Glucose 160 H Calcium 10.1 Troponin I Blood Type O POSITIVE Antibody Screen Negative BBK History Checked No verified bt EKG/Cardiology Studies: Cardiology / EKG Studies 03/26/18 16:30 ELECTROCARDIOGRAM Stat Comment: Mode Of Transportation: Reason For Exam: dizziness Critical Care Progress Note - Nutrition Nutrition: Nutrition Category Date Time Status Heart Healthy Diet [DIET] Diets 03/27/18 Breakfast Active NPO Diet [DIET] Diets 03/27/18 Dinner Active Attending/Attestation - Attestation I have personally seen and examined this patient.: Yes I have fully participated in the care of the patient.: Yes I have reviewed all pertinent clinical information: Yes Notes (Text): 03/27/18 15:09 I have seen and examined the patient. Medical records, lab studies, and imaging were reviewed by me and a management plan was formulated on multidisciplinary rounds with resident Dr. Townsend. I agree with their above documented assessment and plan. Edema and shift improved after administration of decadron. Patient is scheduled for resection of brain tumor tomorrow, most likely GBM, f/u pathology. Critical Care Time minutes. Multi-disciplinary rounds were performed with house staff, nursing, speech therapy, respiratory therapy, pharmacy and nutrition with integrated input from the primary team/attending and other consulting services. The documented time is cumulative and includes review of patient data/exams/labs/chart review and examination of the patient on rounds and throughout the day; time is exclusive of any procedures or teaching time. 03/27/18 15:11
--- NOTE | 2018-03-27 11:32 | CP.PCM.PN ---
Subjective - Date & Time of Evaluation Date of Evaluation: 03/27/18 Time of Evaluation: 11:31 - Subjective Subjective: full consult dictated Right temperal mass consistant with glioblastoma scheduled for carniotomy tomorrow morning Consent signed Objective - Vital Signs/Intake and Output Vital Signs (last 24 hours): Temp Pulse Resp BP Pulse Ox 97.9 F 114 H 97 H 149/90 96 03/27/18 08:00 03/27/18 10:00 03/27/18 10:00 03/27/18 10:00 03/27/18 09:00 Intake and Output: 03/27/18 03/27/18 06:59 18:59 Intake Total 590 150 Output Total 800 Balance -210 150 - Medications Medications: Current Medications Acetaminophen (Tylenol 325mg Tab) 650 mg PO Q6 PRN PRN Reason: Headache Dexamethasone (Decadron Inj) 4 mg IVP Q6H [facility] Last Admin: 03/27/18 08:36 Dose: 4 mg Levetiracetam 500 mg/ Sodium (Chloride) 105 mls @ 210 mls/hr IVPB Q12 KARO Last Admin: 03/27/18 08:35 Dose: 210 mls/hr Potassium Chloride/Sodium Chloride (Potassium Chl 20 Meq In Ns) 1,000 mls @ 75 mls/hr IV .[id number] [facility] Last Admin: 03/26/18 23:50 Dose: 75 mls/hr Metoclopramide HCl (Reglan) 10 mg IVP Q6 PRN PRN Reason: Nausea/Vomiting - Labs Labs: 03/27/18 05:55 03/27/18 05:55 PT 10.9 Seconds (9.8-13.1) 03/27/18 04:20 INR 1.0 (0.9-1.2) 03/27/18 04:20 APTT 28.3 Seconds (25.6-37.1) 03/27/18 04:20
--- NOTE | 2018-03-27 11:34 | MRI ---
PROCEDURE: MRI BRAIN WITH AND WITHOUT CONTRAST HISTORY: brain mass COMPARISON: Unenhanced head CT 03/26/2018. TECHNIQUE: Multiplanar, multisequence MR images of the brain were obtained with (Omniscan 24 cc intravenous) and without intravenous contrast enhancement. FINDINGS: HEMORRHAGE: None DWI: No evidence of an acute or early subacute infarction. BRAIN PARENCHYMA: There is a relatively large mass identified at the anterior pole right temporal lobe measuring 3.5 x 3.9 x 4.2 cm (transverse by anteroposterior by superoinferior dimensions). It is heterogeneous in signal intensity with cystic sub components and is also associated with extensive vasogenic edema involving the right temporoparietal distribution an extending 8 medially through the basal ganglia into the right cerebral peduncle and iliana. This edema exerts prominent mass effect cause a 1.4 cm leftward midline shift, partial effacement of the right lateral ventricle, probable mild hydrocephalus involving the left lateral ventricle, and deformity of the upper brain stem at the level of the cerebral peduncle cyst which appear somewhat flattened. The mass enhances brightly following intravenous gadolinium administration except for the cystic components. No additional abnormal enhancement is appreciated. The differential diagnosis is primary versus secondary malignancy. Infection is felt to be unlikely given the solid-appearing nature of the lesion in question. Other than the brainstem, posterior fossa contents are unremarkable. The perimesencephalic cisterns are mildly narrowed by mass effect with remaining basilar cisterns adequately patent. ENHANCEMENT: As above. VENTRICLES: As above. CRANIUM: Unremarkable. ORBITS: Grossly unremarkable. PARANASAL SINUSES/MASTOIDS: Clear VASCULAR SYSTEM: Skull base flow voids intact. OTHER FINDINGS: None . IMPRESSION: A 4.2 cm enhancing mass containing both solid and cystic components is identified in the anterior right temporal lobe with extensive vasogenic edema related resulting in 1.4 cm leftward midline shift, mild obstructive hydrocephalus of on the left lateral ventricle, deformity of the cerebral peduncle cysts and narrowing of the perimesencephalic cisterns. No additional abnormal intracranial enhancement. Findings suggest metastasis versus high-grade primary brain tumor. Please see discussion above.
--- NOTE | 2018-03-27 13:56 | CT ---
PROCEDURE: CT HEAD WITHOUT CONTRAST. HISTORY: assess level of midline shift COMPARISON: March 26, 2018. CT head. March 27, 2018. MRI brain. Summary of findings on the comparison examination: 4.2 cm enhancing mass containing both solid and cystic components is identified in the anterior right temporal lobe with extensive vasogenic edema related resulting in 1.4 cm leftward midline shift, mild obstructive hydrocephalus of on the left lateral ventricle, deformity of the cerebral peduncle cysts and narrowing of the perimesencephalic cisterns. TECHNIQUE: Axial computed tomography images were obtained through the head/brain without intravenous contrast. Radiation dose: Total exam DLP = 915.99 mGy-cm. This CT exam was performed using one or more of the following dose reduction techniques: Automated exposure control, adjustment of the mA and/or kV according to patient size, and/or use of iterative reconstruction technique. FINDINGS: HEMORRHAGE: No intracranial hemorrhage. BRAIN: Stable right temporal mass. Face Sirena edema again identified. On the prior CT scan at the level of the lateral ventricles midline shift was 13.2. On the present study midline shift is 12.0 mm. VENTRICLES: Mass effect upon the ipsilateral lateral ventricle. Dilatation of the contralateral ventricular system. Effacement of quadrigeminal plate cisterns stable. CALVARIUM: Unremarkable. PARANASAL SINUSES: Unremarkable as visualized. No significant inflammatory changes. MASTOID AIR CELLS: Unremarkable as visualized. No inflammatory changes. OTHER FINDINGS: None. IMPRESSION: Persistent midline shift currently 12.0 mm. At a comparable level on the prior study 13.2 mm. Otherwise no change in the overall appearance of right temporal mass with extensive vasogenic edema.
--- NOTE | 2018-03-27 20:09 | CP.PCM.CON ---
History of Present Illness - History of Present Illness History of Present Illness: Neurology Consultation Note: Mr. Chu is a 58-year-old man who has been having headaches for the last two weeks and are progressive in nature. 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 He presented to the ED and CT head showed a large area of hypodensity in the right temporal/parietal region with midline shift. MRI of the brain with and without contrast confirmed a large right temporal lobe tumor with a significant amount of vasogenic edema. He was started on decadron and keppra and neurosurgery was consulted. There is a plan for surgery tomorrow. Past Patient History - Past Medical History & Family History Past Medical History?: Yes - Past Social History Smoking Status: Never Smoked Chewing Tobacco Use: No Cigar Use: No Alcohol: None Drugs: Denies Home Situation {Lives}: With Family - CARDIAC Hx Hypertension: Yes - PULMONARY Hx Respiratory Disorders: No - NEUROLOGICAL Hx Migraine: Yes - HEENT Hx HEENT Problems: No - RENAL Hx Chronic Kidney Disease: No - ENDOCRINE/METABOLIC Hx Endocrine Disorders: No - HEMATOLOGICAL/ONCOLOGICAL Hx Blood Disorders: No - INTEGUMENTARY Hx Dermatological Problems: No - MUSCULOSKELETAL/RHEUMATOLOGICAL Hx Arthritis: Yes (Right Knee) - GASTROINTESTINAL Hx Gastrointestinal Disorders: No - GENITOURINARY/GYNECOLOGICAL Hx Genitourinary Disorders: No - PSYCHIATRIC Hx Psychophysiologic Disorder: No Hx Substance Use: No Other/Comment: Ostopenia - SURGICAL HISTORY Hx Surgeries: Yes Other/Comment: Lithotripsy - ANESTHESIA Hx Anesthesia: Yes Hx Anesthesia Reactions: No Meds Allergies/Adverse Reactions: Allergies Allergy/AdvReac Type Severity Reaction Status Date / Time No Known Allergies Allergy Verified 03/26/18 15:36 - Medications Medications: Current Medications Acetaminophen (Tylenol 325mg Tab) 650 mg PO Q6 PRN PRN Reason: Headache Dexamethasone (Decadron Inj) 4 mg IVP Q6H [facility] Last Admin: 03/27/18 16:26 Dose: 4 mg Diphenhydramine HCl (Benadryl) 25 mg PO Q6 PRN PRN Reason: Allergy symptoms Last Admin: 03/27/18 16:26 Dose: 25 mg Levetiracetam 500 mg/ Sodium (Chloride) 105 mls @ 210 mls/hr IVPB Q12 [facility]O Last Admin: 03/27/18 08:35 Dose: 210 mls/hr Metoclopramide HCl (Reglan) 10 mg IVP Q6 PRN PRN Reason: Nausea/Vomiting Physical Exam - Neurological Exam Neurological exam: Abnormal Gait, Alert, CN II-XII Intact, Oriented x3 Additional comments: 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 There is hyper-reflexia on the left side with upgoing plantar responses. Results - Vital Signs Recent Vital Signs: Last Vital Signs Temp 98.7 F 03/27/18 19:41 Pulse 93 H 03/27/18 19:00 Resp 15 03/27/18 19:00 BP 149/82 03/27/18 19:00 Pulse Ox 100 03/27/18 19:00 - Labs Result Diagrams: 03/27/18 05:55 03/27/18 05:55 Labs: Laboratory Results - last 24 hr 03/27/18 03/27/18 03/27/18 02:05 04:20 05:55 WBC 8.1 RBC 5.11 Hgb 15.4 Hct 43.9 MCV 85.7 MCH 30.2 MCHC 35.2 RDW 13.1 Plt Count 225 PT 10.9 INR 1.0 APTT 28.3 Sodium Potassium Chloride Carbon Dioxide Anion Gap BUN Creatinine Est GFR ( Amer) Est GFR (Non-Af Amer) Random Glucose Calcium Blood Type Blood Type Confirm O POSITIVE Antibody Screen BBK History Checked 03/27/18 03/27/18 05:55 12:30 WBC RBC Hgb Hct MCV MCH MCHC RDW Plt Count PT INR APTT Sodium 143 Potassium 3.9 Chloride 106 Carbon Dioxide 19 L Anion Gap 22 H BUN 13 Creatinine 0.8 Est GFR ( Amer) > 60 Est GFR (Non-Af Amer) > 60 Random Glucose 160 H Calcium 10.1 Blood Type O POSITIVE Blood Type Confirm Antibody Screen Negative BBK History Checked No verified bt Assessment & Plan (1) Brain mass Assessment and Plan: Continue decadron at 10 mg Q8 hours, continue Keppra 500 mg Q12. Will defer to neurosurgery for aftercare. Thank you. Status: Acute Priority: High
--- NOTE | 2018-03-27 21:20 | CON ---
DATE: HISTORY OF PRESENT ILLNESS: This is a 58-year-old male who was admitted to the emergency room last night complaining of several weeks of worsening headache. He states the headache is really to the base of the skull, he sometimes gets blurry vision. He reports that he has some weakness of his left leg times and he has fallen several times. He denies any other neurologic complaint. He has high blood pressure and high cholesterol that is his only medical illnesses. 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 He states that this has progressed slowly. He had an MRI last night showing a right temporal mass consistent with glioblastoma with significant midline shift. PHYSICAL EXAMINATION: His examination today finds he is fully awake, alert, oriented, and cooperative. Cranial nerves appears intact. His pupils are equal. His EOMs are full. His face was symmetric. His strength is excellent throughout with the exception of the left lower extremity, which is at best 4/5. He has pronator drift on the left. He has no sensory deficit. His reflexes are 2/4; however, he appears to have an upgoing toe on the left. IMPRESSION AND PLAN: At this point, my impression is that he has a brain tumor consistent with glioblastoma. He is scheduled for surgery tomorrow. I have discussed with him in presence of a entertainment lawyer and relative the risks, benefits, and alternatives of the surgery, he understands the risks include, but not limited to , coma, neurologic deficits, weakness paralysis, development of hematoma, bleeding postsurgery, and malignant brain edema. He is willing to proceed and we will proceed tomorrow morning for the craniotomy excision of tumor. Artem Bay MD
--- NOTE | 2018-03-27 22:45 | CP.PCM.HP ---
Past Patient History - Past Medical History & Family History Past Medical History?: Yes - Past Social History Smoking Status: Never Smoked Chewing Tobacco Use: No Cigar Use: No Alcohol: None Drugs: Denies Home Situation {Lives}: With Family - CARDIAC Hx Hypertension: Yes - PULMONARY Hx Respiratory Disorders: No - NEUROLOGICAL Hx Migraine: Yes - HEENT Hx HEENT Problems: No - RENAL Hx Chronic Kidney Disease: No - ENDOCRINE/METABOLIC Hx Endocrine Disorders: No - HEMATOLOGICAL/ONCOLOGICAL Hx Blood Disorders: No - INTEGUMENTARY Hx Dermatological Problems: No - MUSCULOSKELETAL/RHEUMATOLOGICAL Hx Arthritis: Yes (Right Knee) - GASTROINTESTINAL Hx Gastrointestinal Disorders: No - GENITOURINARY/GYNECOLOGICAL Hx Genitourinary Disorders: No - PSYCHIATRIC Hx Psychophysiologic Disorder: No Hx Substance Use: No Other/Comment: Ostopenia - SURGICAL HISTORY Hx Surgeries: Yes Other/Comment: Lithotripsy - ANESTHESIA Hx Anesthesia: Yes Hx Anesthesia Reactions: No Meds Allergies/Adverse Reactions: Allergies Allergy/AdvReac Type Severity Reaction Status Date / Time No Known Allergies Allergy Verified 03/26/18 15:36 Results - Vital Signs Recent Vital Signs: Last Vital Signs Temp 98.7 F 03/27/18 20:00 Pulse 83 03/27/18 22:00 Resp 20 03/27/18 22:00 BP 149/68 03/27/18 22:00 Pulse Ox 99 03/27/18 22:00 - Labs Result Diagrams: 03/27/18 05:55 03/27/18 05:55 Labs: Laboratory Results - last 24 hr 03/27/18 03/27/18 03/27/18 02:05 04:20 05:55 WBC 8.1 RBC 5.11 Hgb 15.4 Hct 43.9 MCV 85.7 MCH 30.2 MCHC 35.2 RDW 13.1 Plt Count 225 PT 10.9 INR 1.0 APTT 28.3 Sodium Potassium Chloride Carbon Dioxide Anion Gap BUN Creatinine Est GFR ( Amer) Est GFR (Non-Af Amer) POC Glucose (mg/dL) Random Glucose Calcium Blood Type Blood Type Confirm O POSITIVE Antibody Screen BBK History Checked 03/27/18 03/27/18 03/27/18 05:55 12:30 22:38 WBC RBC Hgb Hct MCV MCH MCHC RDW Plt Count PT INR APTT Sodium 143 Potassium 3.9 Chloride 106 Carbon Dioxide 19 L Anion Gap 22 H BUN 13 Creatinine 0.8 Est GFR ( Amer) > 60 Est GFR (Non-Af Amer) > 60 POC Glucose (mg/dL) 158 H Random Glucose 160 H Calcium 10.1 Blood Type O POSITIVE Blood Type Confirm Antibody Screen Negative BBK History Checked No verified bt
[2018-03-28] MEDS: Dexamethasone 4 mg/1 ml IVP SCH ×5 (01:41→22:40)
[2018-03-28 05:41] LABS: HEMOGLOBIN 14.3 g/dL (12.0-18.0); MEAN CORPUSCULAR HEMOGLOBIN 29.6 pg (27.0-31.0); RBC 4.83 Mil/uL (4.40-5.90); RED CELL DISTRIBUTION WIDTH 13.4 % (11.5-14.5); WHITE BLOOD COUNT 14.9 K/uL (4.8-10.8)
[2018-03-28 06:34] LABS: BLOOD UREA NITROGEN 17 mg/dl (9-20); CALCIUM 10.1 mg/dL (8.4-10.2); GFR AFRICAN-AMERICAN > 60; GFR NON-AFRICAN AMERICAN > 60
[2018-03-28] MEDS ORDERED: Liquid Adhesive TOP ONE (07:11)
[2018-03-28] MEDS ORDERED: Bupivacaine HCl 0.5% PF (30 ml) Inj ONE (07:11)
[2018-03-28] MEDS ORDERED: Absorbable Gelatin Sponge Size 12-7 ONE (07:11)
[2018-03-28] MEDS ORDERED: APROTININ/FIBRINOGEN(TISSEEL) ONE (07:12)
[2018-03-28] MEDS ORDERED: Absorbable Gelatin Sponge Size 100 ONE ×2 (07:12→09:42)
[2018-03-28] MEDS ORDERED: Thrombin Topical 5,000 Int Units Spray Kit ONE ×2 (07:12→10:30)
[2018-03-28] MEDS ORDERED: Bacitracin Ointment 30 GM TUBE ONE (07:12)
--- NOTE | 2018-03-28 07:57 | RAD ---
HISTORY: PREOP COMPARISON: No prior. FINDINGS: LUNGS: No active pulmonary disease. PLEURA: No significant pleural effusion identified, no pneumothorax apparent. CARDIOVASCULAR: No radiographic findings to suggest acute or significant cardiovascular disease. OSSEOUS STRUCTURES: No significant abnormalities. VISUALIZED UPPER ABDOMEN: Normal. OTHER FINDINGS: None. IMPRESSION: No active disease.
[2018-03-28] MEDS: levETIRAcetam 500 MG in Sodium Chloride 0.9% 100 ML IVPB SCH ×2 (08:10→22:00)
[2018-03-28] MEDS ORDERED: Remifentanil 2 MG PDS IV ONE (08:25)
[2018-03-28] MEDS ORDERED: Nicardipine 20 MG/200 ML 20 MG/200 ML BAG IV ONE ×2 (08:30→14:52)
[2018-03-28] MEDS ORDERED: Mannitol 12.5 gm/50 ml Inj IV ONE ×2 (08:30→10:05)
[2018-03-28] MEDS ORDERED: Rocuronium 10 mg/ml (5 ml) ONE ×2 (08:38→10:38)
[2018-03-28] MEDS ORDERED: Midazolam 2 MG/2 ML VIAL ONE (08:38)
[2018-03-28] MEDS ORDERED: Propofol 10 mg/ml Inj (20 ML) ONE ×2 (08:38→09:24)
[2018-03-28] MEDS ORDERED: Succinylcholine 200 mg/10 ml Inj IV ONE (08:39)
[2018-03-28] MEDS ORDERED: Labetalol 5mg/ml (4ml) ONE ×2 (08:53→08:57)
[2018-03-28] MEDS ORDERED: ePHEDrine 50 mg/ml Inj ONE (08:59)
[2018-03-28] MEDS ORDERED: Phenylephrine 10 mg/ml Inj ONE (08:59)
[2018-03-28] MEDS ORDERED: Sevoflurane - Inhalation Anesthetic Liq (250 ml) ONE (09:26)
[2018-03-28] MEDS ORDERED: Sodium Chloride 0.9% 100 ML IV ONE (10:00)
[2018-03-28] MEDS ORDERED: Lactated Ringer's 1,000 ML IV ONE (10:05)
[2018-03-28] MEDS ORDERED: Lidocaine 2% w Epi 1:100,000 Inj IJ ONE (10:05)
[2018-03-28] MEDS ORDERED: Lactated Ringer's 500 ML IV ONE ×2 (10:30→11:00)
[2018-03-28] MEDS ORDERED: Neostigmine 1:1000 (1 mg/ml) Inj ONE (10:58)
[2018-03-28] MEDS ORDERED: HYDROmorphone 0.5 mg/0.5 ml ISec IVP PRN (11:48)
[2018-03-28] MEDS ORDERED: Dexamethasone 4 mg/1 ml IVP PRN (11:48)
[2018-03-28] MEDS ORDERED: Potassium Ch 20mEq in D5-1/2NS 1,000 ML IV SCH (13:30)
[2018-03-28] MEDS: Morphine 4 MG/ML VIAL IVP PRN (14:34)
--- NOTE | 2018-03-28 14:34 | CP.CCUPN ---
<Sal Townsend - Last Filed: 03/28/18 15:20> CCU Subjective - Physician Review Subjective (Free Text): 03/28/18 14:40 pt seen and examined at bedside. S/P craniotomy with mass resection, POD#0. Pt tolerated procedure well. Drowsy, but awakens to verbal stimuli. Vitals stable. Denies pain. Afebrile. CCU Objective - Vital Signs / Intake & Output Vital Signs (Last 4 hours): Vital Signs Temp Pulse Resp BP Pulse Ox 03/28/18 14:00 85 16 122/55 L 96 03/28/18 13:55 98.5 F 74 20 132/63 95 03/28/18 13:35 98.2 F 78 18 120/73 99 03/28/18 13:20 77 18 127/75 99 03/28/18 13:05 78 18 124/57 L 99 03/28/18 12:50 74 18 130/72 99 03/28/18 12:35 70 18 127/70 99 03/28/18 12:20 96.8 F L 72 18 133/70 99 03/28/18 12:05 63 18 139/81 99 03/28/18 11:50 96.4 F L 68 18 130/83 99 03/28/18 11:35 96.0 F L 65 18 121/58 L 99 Intake and Output (Last 8hrs): Intake & Output 03/27/18 03/28/18 03/28/18 22:59 06:59 14:59 Intake Total 637 547 5462 Output Total 500 1600 2100 Balance 400 -1500 225 Intake: IV 0 2325 Intake, Piggyback 100 Oral 800 100 Output: Urine 500 1600 2100 Urine, Voided 500 1600 - Physical Exam Head: Positive for: Normocephalic, Other (right temporal area with bandage. C/D/ I. ). Negative for: Atraumatic Pupils: Positive for: PERRL Extroacular Muscles: Positive for: EOMI Conjunctiva: Positive for: Normal Mouth: Positive for: Moist Mucous Membranes Neck: Positive for: Normal Range of Motion. Negative for: Meningeal Signs, JVD Respiratory/Chest: Positive for: Clear to Auscultation, Good Air Exchange. Negative for: Respiratory Distress, Accessory Muscle Use, Wheezes, Rales, Rhonchi Cardiovascular: Positive for: Regular Rate and Rhythm, Normal S1, S2. Negative for: Murmurs, Tachycardic, Bradycardic Abdomen: Positive for: Normal Bowel Sounds. Negative for: Tenderness, Distention, Peritoneal Signs Upper Extremity: Positive for: Normal Inspection, Neurovascularly Intact, Capillary Refill < 2s. Negative for: Cyanosis, Edema Lower Extremity: Positive for: Normal Inspection, NORMAL PULSES, Neurovascularly Intact. Negative for: Edema, CALF TENDERNESS Neurological: Positive for: GCS=15, CN II-XII Intact, Speech Normal, Normal Cerebellar Funct, Norm Deep Tendon Reflexes Skin: Positive for: Warm, Dry, Normal Color. Negative for: Rashes Psychiatric: Positive for: Alert, Oriented x 3, Normal Insight, Normal Concentration - Medications Active Medications: Active Medications Generic Name Dose Route Start Last Admin Trade Name Freq PRN Reason Stop Dose Admin Acetaminophen 650 mg 03/27/18 11:05 Tylenol 325mg Tab PO Q6 PRN Headache Dexamethasone 4 mg 03/26/18 20:30 03/28/18 08:11 Decadron Inj IVP 4 mg Q6H KARO Administration Dexamethasone 4 mg 03/28/18 16:00 Decadron Inj IVP Q6 KARO Diphenhydramine HCl 25 mg 03/27/18 16:09 03/27/18 16:26 Benadryl PO 25 mg Q6 PRN Administration Allergy symptoms Levetiracetam 500 mg/ Sodium 105 mls @ 210 mls/hr 03/26/18 21:00 03/28/18 08: 10 Chloride IVPB 210 mls/hr Q12 KARO Administration Potassium Chloride/Dextrose/Sod Cl 1,000 mls @ 60 mls/hr 03/28/18 13:30 03/28 14:03 Potassium Chl 20 Meq In D5-1/2ns IV 03/29/18 13:28 60 mls/hr .[id number] KARO Administration Mannitol 12.5 gm 03/28/18 11:30 Mannitol IV 03/28/18 11:30 Q6H KARO Metoclopramide HCl 10 mg 03/26/18 23:00 Reglan IVP Q6 PRN Nausea/Vomiting Morphine Sulfate 2 mg 03/28/18 11:32 Morphine IVP Q4 PRN Pain, Mild (1-3) - Patient Studies Lab Studies: Lab Studies 03/28/18 03/28/18 03/28/18 Range/Units 05:54 05:00 05:00 WBC 14.9 H D (4.8-10.8) K/uL RBC 4.83 (4.40-5.90) Mil/uL Hgb 14.3 (12.0-18.0) g/dL Hct 42.0 (35.0-51.0) % MCV 87.0 (80.0-94.0) fl MCH 29.6 (27.0-31.0) pg MCHC 34.0 (33.0-37.0) g/dL RDW 13.4 (11.5-14.5) % Plt Count 244 (130-400) K/uL Sodium 144 (132-148) mmol/l Potassium 3.8 (3.6-5.0) MMOL/L Chloride 107 (98-107) mmol/L Carbon Dioxide 18 L (22-30) mmol/L Anion Gap 23 H (10-20) BUN 17 (9-20) mg/dl Creatinine 0.8 (0.8-1.5) mg/dl Est GFR ( Amer) > 60 Est GFR (Non-Af Amer) > 60 POC Glucose (mg/dL) 138 H (65-110) mg/dL Random Glucose 153 H (75-110) mg/dL Calcium 10.1 (8.4-10.2) mg/dL Blood Type Blood Type Confirm Antibody Screen Crossmatch BBK History Checked 03/27/18 03/27/18 03/27/18 Range/Units 22:38 12:30 02:05 WBC (4.8-10.8) K/uL RBC (4.40-5.90) Mil/uL Hgb (12.0-18.0) g/dL Hct (35.0-51.0) % MCV (80.0-94.0) fl MCH (27.0-31.0) pg MCHC (33.0-37.0) g/dL RDW (11.5-14.5) % Plt Count (130-400) K/uL Sodium (132-148) mmol/l Potassium (3.6-5.0) MMOL/L Chloride (98-107) mmol/L Carbon Dioxide (22-30) mmol/L Anion Gap (10-20) BUN (9-20) mg/dl Creatinine (0.8-1.5) mg/dl Est GFR ( Amer) Est GFR (Non-Af Amer) POC Glucose (mg/dL) 158 H (65-110) mg/dL Random Glucose (75-110) mg/dL Calcium (8.4-10.2) mg/dL Blood Type O POSITIVE Blood Type Confirm O POSITIVE Antibody Screen Negative Crossmatch See Detail BBK History Checked No verified bt Laboratory Results - last 24 hr 03/27/18 03/27/18 03/27/18 02:05 12:30 22:38 WBC RBC Hgb Hct MCV MCH MCHC RDW Plt Count Sodium Potassium Chloride Carbon Dioxide Anion Gap BUN Creatinine Est GFR ( Amer) Est GFR (Non-Af Amer) POC Glucose (mg/dL) 158 H Random Glucose Calcium Blood Type O POSITIVE Blood Type Confirm O POSITIVE Antibody Screen Negative Crossmatch See Detail BBK History Checked No verified bt 03/28/18 03/28/18 03/28/18 05:00 05:00 05:54 WBC 14.9 H D RBC 4.83 Hgb 14.3 Hct 42.0 MCV 87.0 MCH 29.6 MCHC 34.0 RDW 13.4 Plt Count 244 Sodium 144 Potassium 3.8 Chloride 107 Carbon Dioxide 18 L Anion Gap 23 H BUN 17 Creatinine 0.8 Est GFR ( Amer) > 60 Est GFR (Non-Af Amer) > 60 POC Glucose (mg/dL) 138 H Random Glucose 153 H Calcium 10.1 Blood Type Blood Type Confirm Antibody Screen Crossmatch BBK History Checked Fingerstick Blood Sugar Results: 138 Review of Systems - Review of Systems Systems not reviewed;Unavailable: Altered Mental Status (drowsy) Critical Care Progress Note - Ventilator Checklist Head of Bed 30 Degrees: Yes Daily Sedation Vacation: No Daily Assessment of Readiness to Wean: No Daily Spontaneous Breathing Trial: No PUD Prophalyxis: Yes DVT Prophylaxis: Yes (SCDs) - Nutrition Nutrition: Nutrition Category Date Time Status NPO Diet [DIET] Diets 03/27/18 Dinner Active Assessment/Plan - Assessment and Plan (Free Text) Assessment: 58 y/o male with PMHx of HTN, migraines, knee OA admitted for right temporal mass with 14 mm midline shift, s/p craniectomy with mass resection on 03/28. Plan: 1) Right Temporal Mass, S/P Craniectomy with mass resection, POD#0 -POD #0 -s/p craniectomy on 03/28, with mass resection procedure tolerated well -mass resected, f/u patho report -extubated in PACU, on NC -Given Mannitol 30gm and Lasix 20mg intraop, 900mL output -IV Decadron 4mg Q6H -IV Mannitol 12.5mg Q6H -NS fluid hydration -pain control -Strict I/Os -PT/OT evaluation/treatment -repeat CBC/CMP in AM 2) Mild Obstructive Hydrocephalus -s/p craniectomy -monitor for symptoms of hydrocephalus 3) Localized R Temporal Lobe Edema with Midline Shift -s/p craniectomy with mass resection -monitor BPs 4) Hypertension -monitor vitals -Nicardipine drip at 10mg/hr -maintain BP 120-140 systolic as per neurosurgery 5) Migraines -chronic -pain control 6) Prophylaxis -DVT: SCDs -Seizure: IV Keppra -head of bed elevation 7) Diet -NPO 8) Code Status -Full Code <Isiah Mcnally - Last Filed: 03/28/18 18:40> CCU Subjective - Physician Review Subjective (Free Text): Attestation: Patient seen and examined at the bedside with Resident Dr. Kishan Townsend; and I agree with his outline of plans and management documented below as discussed on AM rounds reflecting my review of all applicable clinical data, and participation in the care of the patient throughout the day in ICU; today, March.
[2018-03-28] MEDS ORDERED: Dexamethasone 4 MG in Sodium Chloride 0.9% 50 ML IVPB SCH (16:00)
[2018-03-28] MEDS: Mannitol 12.5 gm/50 ml Inj IV SCH ×2 (16:37→23:35)
[2018-03-28] MEDS ORDERED: Morphine 4 MG/ML VIAL IVP ONE (21:54)
--- NOTE | 2018-03-28 22:08 | CP.PCM.PN ---
Subjective - Date & Time of Evaluation Date of Evaluation: 03/28/18 Time of Evaluation: 11:25 Objective - Vital Signs/Intake and Output Vital Signs (last 24 hours): Temp Pulse Resp BP Pulse Ox 97.6 F 93 H 18 122/73 96 03/28/18 16:00 03/28/18 18:00 03/28/18 18:00 03/28/18 18:00 03/28/18 18:00 Intake and Output: 03/28/18 03/29/18 18:59 06:59 Intake Total 2505 Output Total 4100 Balance -1595 - Medications Medications: Current Medications Acetaminophen (Tylenol 325mg Tab) 650 mg PO Q6 PRN PRN Reason: Headache Dexamethasone (Decadron Inj) 4 mg IVP Q6 KARO Last Admin: 03/28/18 15:50 Dose: 4 mg Diphenhydramine HCl (Benadryl) 25 mg PO Q6 PRN PRN Reason: Allergy symptoms Last Admin: 03/27/18 16:26 Dose: 25 mg Levetiracetam 500 mg/ Sodium (Chloride) 105 mls @ 210 mls/hr IVPB Q12 KARO Last Admin: 03/28/18 08:10 Dose: 210 mls/hr Mannitol (Mannitol) 12.5 gm IV Q6H KARO Last Admin: 03/28/18 16:37 Dose: 12.5 gm Metoclopramide HCl (Reglan) 10 mg IVP Q6 PRN PRN Reason: Nausea/Vomiting Last Admin: 03/28/18 17:05 Dose: 10 mg Morphine Sulfate (Morphine) 2 mg IVP Q4 PRN PRN Reason: Pain, Mild (1-3) Last Admin: 03/28/18 14:34 Dose: 2 mg - Labs Labs: 03/28/18 05:00 03/28/18 05:00 PT 10.9 Seconds (9.8-13.1) 03/27/18 04:20 INR 1.0 (0.9-1.2) 03/27/18 04:20 APTT 28.3 Seconds (25.6-37.1) 03/27/18 04:20
[2018-03-29] MEDS ORDERED: Labetalol 5 mg/ml Inj 20ML IVP STA ×2 (00:18→02:29)
[2018-03-29] MEDS: levETIRAcetam 500 MG in Sodium Chloride 0.9% 100 ML IVPB SCH ×3 (00:40→21:08)
[2018-03-29] MEDS ORDERED: Morphine 4 MG/ML VIAL IVP ONE ×2 (02:32→08:36)
[2018-03-29] MEDS: Dexamethasone 4 mg/1 ml IVP SCH ×2 (04:35→10:04)
[2018-03-29] MEDS: Morphine 4 MG/ML VIAL IVP PRN ×2 (05:43→08:33)
[2018-03-29 06:06] LABS: HEMOGLOBIN 14.6 g/dL (12.0-18.0); MEAN CELL VOLUME 87.1 fl (80.0-94.0); MEAN CORPUSCULAR HGB CONC 34.5 g/dL (33.0-37.0); RBC 4.86 Mil/uL (4.40-5.90); RED CELL DISTRIBUTION WIDTH 13.6 % (11.5-14.5); WHITE BLOOD COUNT 17.5 K/uL (4.8-10.8)
[2018-03-29 06:18] LABS: ALB/GLOB RATIO 1.2 (1.0-2.1); ALBUMIN 4.1 g/dL (3.5-5.0); ALT/SGPT 40 U/L (21-72); AST/SGOT 25 U/L (17-59); BLOOD UREA NITROGEN 16 mg/dl (9-20); GFR AFRICAN-AMERICAN > 60; GFR NON-AFRICAN AMERICAN > 60
[2018-03-29] MEDS: Nicardipine 20 MG/200 ML 20 MG/200 ML BAG IV SCH ×2 (08:00→10:10)
[2018-03-29] MEDS: Mannitol 12.5 gm/50 ml Inj IV SCH ×2 (08:31→18:37)
[2018-03-29] MEDS ORDERED: Morphine 4 MG/ML VIAL IVP PRN (08:37)
--- NOTE | 2018-03-29 10:37 | CP.PCM.PN ---
Subjective - Date & Time of Evaluation Date of Evaluation: 03/29/18 Time of Evaluation: 10:36 - Subjective Subjective: post o day 1 doing well fully awake alert orineted st in all limbs 03/24 no drift will adv activites and diet will start weaning manitol keep decadron at present dose Objective - Vital Signs/Intake and Output Vital Signs (last 24 hours): Temp Pulse Resp BP Pulse Ox 98.9 F 69 14 166/76 H 95 03/29/18 08:00 03/29/18 08:00 03/29/18 08:00 03/29/18 08:00 03/29/18 08:00 Intake and Output: 03/29/18 03/29/18 06:59 18:59 Intake Total 400 79 Output Total 850 Balance -450 79 - Medications Medications: Current Medications Acetaminophen (Tylenol 325mg Tab) 650 mg PO Q6 PRN PRN Reason: Headache Dexamethasone (Decadron Inj) 4 mg IVP Q6 KARO Last Admin: 03/29/18 10:04 Dose: 4 mg Diphenhydramine HCl (Benadryl) 25 mg PO Q6 PRN PRN Reason: Allergy symptoms Last Admin: 03/27/18 16:26 Dose: 25 mg Levetiracetam 500 mg/ Sodium (Chloride) 105 mls @ 210 mls/hr IVPB Q12 KARO Last Admin: 03/29/18 08:08 Dose: 210 mls/hr Nicardipine HCl (Cardene Iv Premix) 20 mg in 200 mls @ 50 mls/hr IV .Q4H KARO; 5 MG/HR PRN Reason: Protocol Last Titration: 03/29/18 08:45 Dose: 12.5 mg/hr, 125 mls/hr Mannitol (Mannitol) 12.5 gm IV Q6H KARO Last Admin: 03/29/18 08:31 Dose: 12.5 gm Metoclopramide HCl (Reglan) 10 mg IVP Q6 PRN PRN Reason: Nausea/Vomiting Last Admin: 03/28/18 17:05 Dose: 10 mg Morphine Sulfate (Morphine) 4 mg IVP Q4 PRN PRN Reason: Pain, moderate (4-7) - Labs Labs: 03/29/18 04:30 03/29/18 04:30 PT 10.9 Seconds (9.8-13.1) 03/27/18 04:20 INR 1.0 (0.9-1.2) 03/27/18 04:20 APTT 28.3 Seconds (25.6-37.1) 03/27/18 04:20
--- NOTE | 2018-03-29 10:41 | CP.CCUPN ---
<Sal Townsend - Last Filed: 03/29/18 16:19> CCU Subjective - Physician Review Subjective (Free Text): POD#1. Pt seen and examined at bedside. Lying with HOB elevated, comfortably, NAD. Pt complained of headache overnight which disturbed him and he was unable to sleep well, otherwise no other acute events or complaints overnight. Moving all extremities w/o issue, denies and loss of sensation, numbness, or weakness. No visual changes. Reports feeling hungry and still complaining of headache. No other complaints/concerns. CCU Objective - Vital Signs / Intake & Output Vital Signs (Last 4 hours): Vital Signs Temp Pulse Resp BP Pulse Ox 03/29/18 08:00 98.9 F 69 14 166/76 H 95 Intake and Output (Last 8hrs): Intake & Output 03/28/18 03/29/18 03/29/18 22:59 06:59 14:59 Intake Total 460 120 79 Output Total 2450 400 Balance -1989 79 Weight 122.016 kg Intake: IV 360 120 79 Intake, Piggyback 100 Oral 0 Output: Urine 2450 400 Urethral (Dennis) 1450 400 Urine, Voided 1000 - Physical Exam Head: Positive for: Normocephalic, Other (right temporal area with bandage. C/D/ I. ). Negative for: Atraumatic Pupils: Positive for: PERRL Extroacular Muscles: Positive for: EOMI Conjunctiva: Positive for: Normal Mouth: Positive for: Moist Mucous Membranes Neck: Positive for: Normal Range of Motion. Negative for: Meningeal Signs, JVD Respiratory/Chest: Positive for: Clear to Auscultation, Good Air Exchange. Negative for: Respiratory Distress, Accessory Muscle Use, Wheezes, Rales, Rhonchi Cardiovascular: Positive for: Regular Rate and Rhythm, Normal S1, S2. Negative for: Murmurs, Tachycardic, Bradycardic Abdomen: Positive for: Normal Bowel Sounds. Negative for: Tenderness, Distention, Peritoneal Signs Upper Extremity: Positive for: Normal Inspection, Neurovascularly Intact, Capillary Refill < 2s. Negative for: Cyanosis, Edema Lower Extremity: Positive for: Normal Inspection, NORMAL PULSES, Neurovascularly Intact. Negative for: Edema, CALF TENDERNESS Neurological: Positive for: GCS=15, CN II-XII Intact, Speech Normal, Normal Cerebellar Funct, Norm Deep Tendon Reflexes Skin: Positive for: Warm, Dry, Normal Color. Negative for: Rashes Psychiatric: Positive for: Alert, Oriented x 3, Normal Insight, Normal Concentration - Medications Active Medications: Active Medications Generic Name Dose Route Start Last Admin Trade Name Freq PRN Reason Stop Dose Admin Acetaminophen 650 mg 03/27/18 11:05 Tylenol 325mg Tab PO Q6 PRN Headache Dexamethasone 4 mg 03/28/18 16:00 03/29/18 10:04 Decadron Inj IVP 4 mg Q6 KARO Administration Diphenhydramine HCl 25 mg 03/27/18 16:09 03/27/18 16:26 Benadryl PO 25 mg Q6 PRN Administration Allergy symptoms Levetiracetam 500 mg/ Sodium 105 mls @ 210 mls/hr 03/26/18 21:00 03/29/18 08: 08 Chloride IVPB 210 mls/hr Q12 KARO Administration Nicardipine HCl 20 mg in 200 mls @ 50 mls/hr 03/29/18 07:04 03/29/18 08:45 Cardene Iv Premix IV 12.5 mg/hr .Q4H KARO 125 mls/hr Protocol Titration 5 MG/HR Mannitol 12.5 gm 03/28/18 11:30 03/29/18 08:31 Mannitol IV 12.5 gm Q6H KARO Administration Metoclopramide HCl 10 mg 03/26/18 23:00 03/28/18 17:05 Reglan IVP 10 mg Q6 PRN Administration Nausea/Vomiting Morphine Sulfate 4 mg 03/29/18 08:37 Morphine IVP Q4 PRN Pain, moderate (4-7) Oxycodone/Acetaminophen 1 tab 03/29/18 10:37 Percocet 5/325 Mg Tab PO 04/01/18 10:38 Q4 PRN Pain, Mild (1-3) - Patient Studies Lab Studies: Lab Studies 03/29/18 03/29/18 03/29/18 Range/Units 05:36 04:30 04:30 WBC 17.5 H (4.8-10.8) K/uL RBC 4.86 (4.40-5.90) Mil/uL Hgb 14.6 (12.0-18.0) g/dL Hct 42.3 (35.0-51.0) % MCV 87.1 (80.0-94.0) fl MCH 30.0 (27.0-31.0) pg MCHC 34.5 (33.0-37.0) g/dL RDW 13.6 (11.5-14.5) % Plt Count 252 (130-400) K/uL Sodium 144 (132-148) mmol/l Potassium 3.7 (3.6-5.0) MMOL/L Chloride 105 (98-107) mmol/L Carbon Dioxide 20 L (22-30) mmol/L Anion Gap 23 H (10-20) BUN 16 (9-20) mg/dl Creatinine 0.7 L (0.8-1.5) mg/dl Est GFR ( Amer) > 60 Est GFR (Non-Af Amer) > 60 POC Glucose (mg/dL) 122 H (65-110) mg/dL Random Glucose 148 H (75-110) mg/dL Calcium 10.0 (8.4-10.2) mg/dL Total Bilirubin 0.8 (0.2-1.3) mg/dl AST 25 (17-59) U/L ALT 40 (21-72) U/L Alkaline Phosphatase 78 (38-126) U/L Total Protein 7.6 (6.3-8.2) G/DL Albumin 4.1 (3.5-5.0) g/dL Globulin 3.5 (2.2-3.9) gm/dL Albumin/Globulin Ratio 1.2 (1.0-2.1) 03/28/18 03/28/18 Range/Units 22:03 16:48 WBC (4.8-10.8) K/uL RBC (4.40-5.90) Mil/uL Hgb (12.0-18.0) g/dL Hct (35.0-51.0) % MCV (80.0-94.0) fl MCH (27.0-31.0) pg MCHC (33.0-37.0) g/dL RDW (11.5-14.5) % Plt Count (130-400) K/uL Sodium (132-148) mmol/l Potassium (3.6-5.0) MMOL/L Chloride (98-107) mmol/L Carbon Dioxide (22-30) mmol/L Anion Gap (10-20) BUN (9-20) mg/dl Creatinine (0.8-1.5) mg/dl Est GFR ( Amer) Est GFR (Non-Af Amer) POC Glucose (mg/dL) 128 H 157 H (65-110) mg/dL Random Glucose (75-110) mg/dL Calcium (8.4-10.2) mg/dL Total Bilirubin (0.2-1.3) mg/dl AST (17-59) U/L ALT (21-72) U/L Alkaline Phosphatase (38-126) U/L Total Protein (6.3-8.2) G/DL Albumin (3.5-5.0) g/dL Globulin (2.2-3.9) gm/dL Albumin/Globulin Ratio (1.0-2.1) Laboratory Results - last 24 hr 03/28/18 03/28/18 03/29/18 16:48 22:03 04:30 WBC 17.5 H RBC 4.86 Hgb 14.6 Hct 42.3 MCV 87.1 MCH 30.0 MCHC 34.5 RDW 13.6 Plt Count 252 Sodium Potassium Chloride Carbon Dioxide Anion Gap BUN Creatinine Est GFR ( Amer) Est GFR (Non-Af Amer) POC Glucose (mg/dL) 157 H 128 H Random Glucose Calcium Total Bilirubin AST ALT Alkaline Phosphatase Total Protein Albumin Globulin Albumin/Globulin Ratio 03/29/18 03/29/18 04:30 05:36 WBC RBC Hgb Hct MCV MCH MCHC RDW Plt Count Sodium 144 Potassium 3.7 Chloride 105 Carbon Dioxide 20 L Anion Gap 23 H BUN 16 Creatinine 0.7 L Est GFR ( Amer) > 60 Est GFR (Non-Af Amer) > 60 POC Glucose (mg/dL) 122 H Random Glucose 148 H Calcium 10.0 Total Bilirubin 0.8 AST 25 ALT 40 Alkaline Phosphatase 78 Total Protein 7.6 Albumin 4.1 Globulin 3.5 Albumin/Globulin Ratio 1.2 Fingerstick Blood Sugar Results: 128 Review of Systems - EENT Eyes: UNREMARKABLE Ears: UNREMARKABLE Nose/Mouth/Throat: Dry Mouth, UNREMARKABLE - Cardiovascular Cardiovascular: UNREMARKABLE - Respiratory Respiratory: UNREMARKABLE - Gastrointestinal Gastrointestinal: UNREMARKABLE - Genitourinary Genitourinary: UNREMARKABLE - Neurological Neurological: Headaches. absent: Abnormal Hearing, Abnormal Movements, Abnormal Speech, Confusion, Disequilibrium, Dizziness, Numbness, Focal Weakness , Loss of Vision, Memory Loss, Paresthesias, Sensory Deficit, Tingling, Tremor, Weakness, Other Visual Disturbances - Psychiatric Psychiatric: UNREMARKABLE Critical Care Progress Note - Ventilator Checklist Head of Bed 30 Degrees: Yes Daily Sedation Vacation: No Daily Assessment of Readiness to Wean: No Daily Spontaneous Breathing Trial: No PUD Prophalyxis: Yes DVT Prophylaxis: Yes Oral Care with Chlorhexidine Gluconate {CHG}: No - Extremities/Vascular Does the Patient have a Central Venous Catheter?: No Does the Patient have a Dennis Catheter?: Yes Does the Patient need a Dennis Catheter?: Yes Catheter Insertion Criteria: Need for accurate measurement of output in critically ill patient - Prophylaxis GI Prophylaxis GI: PPI - Prophylaxis DVT Prophylaxis DVT: SCDs - Nutrition Nutrition: Nutrition Category Date Time Status Liquid Diet [DIET] Diets 03/29/18 Breakfast Active Assessment/Plan - Assessment and Plan (Free Text) Assessment: 58 y/o male with PMHx of HTN, migraines, knee OA admitted for right temporal mass with 14 mm midline shift, s/p craniectomy with mass resection on 03/28. Plan: 1) Right Temporal Mass, S/P Craniectomy with mass resection, POD#1 -POD #1 -s/p craniectomy on 03/28, with mass resection procedure tolerated well -mass resected, f/u patho report -IV Decadron 4mg Q6H switch to PO -Wean off IV Mannitol, Q8H today, Q12H on 03/30 then DC -pain control -Dennis d/c'ed -PT/OT evaluation/treatment 2) Mild Obstructive Hydrocephalus -s/p craniectomy -monitor for symptoms of hydrocephalus 3) Localized R Temporal Lobe Edema with Midline Shift -s/p craniectomy with mass resection -monitor BPs 4) Hypertension -monitor vitals -maintain BP 120-140 systolic as per neurosurgery -Start Norvasc 10mg QD 5) Migraines -chronic -pain control 6) Prophylaxis -DVT: SCDs -Seizure: IV Keppra -head of bed elevation 7) Diet -advance diet as tolerated, full liquid started -if no issue will advance to full heart healthy 8) Code Status -Full Code <Isiah Mcnally - Last Filed: 03/29/18 22:31> CCU Subjective - Physician Review Subjective (Free Text): Attestation: Patient seen and examined at the bedside with Resident Dr. Kishan Townsend; and I agree with his outline of plans and management documented below as discussed on AM rounds reflecting my review of all applicable clinical data, and participation in the care of the patient throughout the day in ICU; today, March 29, 2018. Critical Care Progress Note - Nutrition Nutrition: Nutrition Category Date Time Status Heart Healthy Diet [DIET] Diets 03/29/18 Dinner Active
[2018-03-29] MEDS ORDERED: Mannitol 12.5 gm/50 ml Inj IV SCH (11:15)
[2018-03-29] MEDS: Oxycodone/Acetaminophen 5/325 mg Tab PO PRN ×2 (11:48→14:34)
--- NOTE | 2018-03-29 12:18 | OP ---
PROCEDURE DATE: 03/28/2018 PREOPERATIVE DIAGNOSIS: Right temporal mass. POSTOPERATIVE DIAGNOSIS: Right temporal mass. OPERATIVE PROCEDURE: Right temporal craniotomy and excision of mass. SURGEON: Artem Bay MD DESCRIPTION OF PROCEDURE: The patient was brought to the operating room today and appropriately head turned to the left. The right temporofrontal area of the hair was clipped and the area was prepped and draped in the usual manner. A curvilinear type incision was made based at the zygoma, instilled with lidocaine with epinephrine. Scalp was incised sharply and retracted back. The temporalis muscle was incised in the same line as the skin incision and the temporalis muscle was stripped off the underlying skull and reflected back using Gelpi retractors. Two thaddeus holes were placed and we exposed the cranium and connected with the craniotome. The plate was removed. The underlying dura was stripped off the scalp in the inferior temporal fossa inferiorly and anteriorly and a Leksell rongeur was used the bone doing a subtemporal decompression and at this point, the dura was then opened using #15 blade followed by Metzenbaum scissors, the dura was retracted back using 4-0 Nurolon and the cortex was then coagulated with the bipolar cautery and incised with the #15 blade and corticectomy was made. We came upon an area, which appeared to be abnormal in color and texture. This was consistent with glioma. We removed using a combination of suction and bipolar cautery. The area that appeared grossly to be abnormal. The specimen was sent for Pathology. When the appearance of the white matter appeared to be more normal, we refrained from doing any more tumor excision. There was no definite border between the abnormal appearance and the normal brain. Hemostasis was obtained on a cortical surface and in the tumor bed. After making certain, hemostasis was meticulous. The tumor bed was coated with Surgicel and the dura was then reapproximated before Nurolon and Gelfoam were placed over the exposed dura and two 12-mm RapidFix clamps were to reapproximate the bone flap. The temporalis muscle was reapproximated using 2-0 Vicryl and the subgaleal layer was reapproximated using 2-0 Vicryl and skin froy were applied to the skin. The patient was awoken up from anesthesia, was actually moving all extremities, taken to the recovery room in stable condition. All counts were correct. Specimen was tumor. Blood loss was approximately 50 to 100 mL. Artem Bay MD
--- NOTE | 2018-03-29 13:07 | PQF GENQUE ---
This form is a permanent part of the medical record 03/29/18 Dr. Clemons, Would you please clarify if there is an associated diagnosis or not to go along with the BMI and Distributor Operator documentation. EMR has the patient listed as 5' 7" weighing 269 pounds. Distributor Operator has documented that the patient usually weighs 299 pounds but has a 39 pound weight loss in the past 6 months unplanned. BMI 42.7 and Classification of Obesity. See consult. Clarification of your documentation is requested to better reflect the severity of illness and intensity of treatment of your patient. Indicators present PHYSICIAN'S RESPONSE Based on your medical judgment of the clinical indicators outlined above please clarify the following: [] Practitioner response [] If unable to determine, please check the box, sign and date. Present On Admission (POA) Indicator: [] Present at the time of admission [] Not present at the time of admission [] Clinically Undetermined In responding to this query, please exercise your independent professional judgment. The fact that a question is asked does not imply that any particular answer is desired or expected. Thank you for your clarification on this documentation. If you have any questions please call:[phone] * Thank you, Miracle Diamond RN CDMP MTDD
[2018-03-29] MEDS: Insulin Lispro (humaLOG) 100 Units/ml Inj SC SCH (22:42)
--- NOTE | 2018-03-29 22:44 | CP.PCM.PN ---
Subjective - Date & Time of Evaluation Date of Evaluation: 03/29/18 Time of Evaluation: 13:55 Objective - Vital Signs/Intake and Output Vital Signs (last 24 hours): Temp Pulse Resp BP Pulse Ox 97.6 F 69 22 127/78 95 03/29/18 20:00 03/29/18 22:00 03/29/18 22:00 03/29/18 22:00 03/29/18 22:00 Intake and Output: 03/29/18 03/30/18 18:59 06:59 Intake Total 1235.0 0 Output Total 750 500 Balance 485.0 -500 - Medications Medications: Current Medications Acetaminophen (Tylenol 325mg Tab) 650 mg PO Q6 PRN PRN Reason: Headache Amlodipine Besylate (Norvasc) 10 mg PO DAILY [facility] Last Admin: 03/29/18 11:44 Dose: 10 mg Dexamethasone (Decadron) 4 mg PO 0400,1000,1600,2200 [facility] Last Admin: 03/29/18 21:09 Dose: 4 mg Diphenhydramine HCl (Benadryl) 25 mg PO Q6 PRN PRN Reason: Allergy symptoms Last Admin: 03/27/18 16:26 Dose: 25 mg Levetiracetam 500 mg/ Sodium (Chloride) 105 mls @ 210 mls/hr IVPB Q12 [facility] Last Admin: 03/29/18 21:08 Dose: 210 mls/hr Nicardipine HCl (Cardene Iv Premix) 20 mg in 200 mls @ 50 mls/hr IV .Q4H [facility]; 5 MG/HR PRN Reason: Protocol Last Titration: 03/29/18 15:30 Dose: 0 mg/hr, 0 mls/hr Insulin Human Lispro (Humalog) 0 units SC ACHS [facility] PRN Reason: Protocol Mannitol (Mannitol) 12.5 gm IV Q8@0100,0900,1700 [facility] Last Admin: 03/29/18 18:37 Dose: 12.5 gm Metoclopramide HCl (Reglan) 10 mg IVP Q6 PRN PRN Reason: Nausea/Vomiting Last Admin: 03/29/18 14:45 Dose: 10 mg Morphine Sulfate (Morphine) 4 mg IVP Q4 PRN PRN Reason: Pain, moderate (4-7) Oxycodone/Acetaminophen (Percocet 5/325 Mg Tab) 1 tab PO Q4 PRN PRN Reason: Pain, Mild (1-3) Stop: 04/01/18 10:38 Last Admin: 03/29/18 14:34 Dose: 1 tab - Labs Labs: 03/29/18 04:30 03/29/18 04:30 PT 10.9 Seconds (9.8-13.1) 03/27/18 04:20 INR 1.0 (0.9-1.2) 03/27/18 04:20 APTT 28.3 Seconds (25.6-37.1) 03/27/18 04:20
[2018-03-30] MEDS: Mannitol 12.5 gm/50 ml Inj IV SCH ×2 (00:40→09:45)
[2018-03-30] MEDS: Oxycodone/Acetaminophen 5/325 mg Tab PO PRN (05:09)
[2018-03-30 05:23] LABS: HEMOGLOBIN 14.5 g/dL (12.0-18.0); MEAN CELL VOLUME 86.7 fl (80.0-94.0); MEAN CORPUSCULAR HGB CONC 34.6 g/dL (33.0-37.0); RBC 4.84 Mil/uL (4.40-5.90); RED CELL DISTRIBUTION WIDTH 13.6 % (11.5-14.5)
[2018-03-30 05:55] LABS: ALB/GLOB RATIO 1.2 (1.0-2.1); ALT/SGPT 49 U/L (21-72); AST/SGOT 31 U/L (17-59); BLOOD UREA NITROGEN 17 mg/dl (9-20); CALCIUM 10.1 mg/dL (8.4-10.2); GFR AFRICAN-AMERICAN > 60; GFR NON-AFRICAN AMERICAN > 60
[2018-03-30] MEDS: Insulin Lispro (humaLOG) 100 Units/ml Inj SC SCH ×4 (08:19→21:32)
[2018-03-30] MEDS: levETIRAcetam 500 MG in Sodium Chloride 0.9% 100 ML IVPB SCH ×2 (08:20→21:41)
[2018-03-30] MEDS ORDERED: Valproate 500 MG in Sodium Chloride 0.9% 100 ML IVPB ONE (09:53)
[2018-03-30] MEDS ORDERED: Magnesium Sulfate 2 gm/50 ml 2 GM/50 ML BAG IVPB ONE (09:53)
--- NOTE | 2018-03-30 10:03 | CP.PCM.PN ---
Subjective - Date & Time of Evaluation Date of Evaluation: 03/30/18 Time of Evaluation: 10:00 - Subjective Subjective: Mr. Chu was seen and examined at the bedside in ICU. He is alert, oriented in all spheres. He complains of headache with pain scale 7/10, throbbing, non- radiating, located in his right parietal area. His pupils remains reactive to light with swelling noted in the lower right eyelid. His sensation remains symmetrical. He denies any dizziness, blurred vision, nause, or vomiting. He is able to follow all commands. There was no untoward events overnight. Objective - Vital Signs/Intake and Output Vital Signs (last 24 hours): Temp Pulse Resp BP Pulse Ox 97.7 F 76 16 139/77 96 03/30/18 08:00 03/30/18 09:00 03/30/18 09:00 03/30/18 09:00 03/30/18 09:00 Intake and Output: 03/30/18 03/30/18 06:59 18:59 Intake Total 0 50 Output Total 1500 Balance -1500 50 - Medications Medications: Current Medications Acetaminophen (Tylenol 325mg Tab) 650 mg PO Q6 PRN PRN Reason: Headache Amlodipine Besylate (Norvasc) 10 mg PO DAILY [facility] Last Admin: 03/30/18 08:26 Dose: 10 mg Dexamethasone (Decadron) 4 mg PO 0400,1000,1600,2200 [facility] Last Admin: 03/30/18 03:36 Dose: 4 mg Diphenhydramine HCl (Benadryl) 25 mg PO Q6 PRN PRN Reason: Allergy symptoms Last Admin: 03/27/18 16:26 Dose: 25 mg Levetiracetam 500 mg/ Sodium (Chloride) 105 mls @ 210 mls/hr IVPB Q12 [facility] Last Admin: 03/30/18 08:20 Dose: 210 mls/hr Nicardipine HCl (Cardene Iv Premix) 20 mg in 200 mls @ 50 mls/hr IV .Q4H [facility]; 5 MG/HR PRN Reason: Protocol Last Titration: 03/29/18 15:30 Dose: 0 mg/hr, 0 mls/hr Magnesium Sulfate (Magnesium Sulfate 2 Gm/50 Ml Water) 2 gm in 50 mls @ 50 mls/ hr IVPB ONCE ONE PRN Reason: 2 GM/HR Stop: 03/30/18 10:52 Insulin Human Lispro (Humalog) 0 units SC ACHS [facility] PRN Reason: Protocol Last Admin: 03/30/18 08:19 Dose: Not Given Mannitol (Mannitol) 12.5 gm IV Q8@0100,0900,1700 [facility] Last Admin: 03/30/18 09:45 Dose: 12.5 gm Metoclopramide HCl (Reglan) 10 mg IVP Q6 PRN PRN Reason: Nausea/Vomiting Last Admin: 03/29/18 14:45 Dose: 10 mg Morphine Sulfate (Morphine) 4 mg IVP Q4 PRN PRN Reason: Pain, moderate (4-7) Oxycodone/Acetaminophen (Percocet 5/325 Mg Tab) 1 tab PO Q4 PRN PRN Reason: Pain, Mild (1-3) Stop: 04/01/18 10:38 Last Admin: 03/30/18 05:09 Dose: 1 tab - Labs Labs: 03/30/18 04:30 03/30/18 04:30 PT 10.9 Seconds (9.8-13.1) 03/27/18 04:20 INR 1.0 (0.9-1.2) 03/27/18 04:20 APTT 28.3 Seconds (25.6-37.1) 03/27/18 04:20 - Constitutional Appears: No Acute Distress - Head Exam Head Exam: NORMAL INSPECTION - Neurological Exam Neurological Exam: Alert, Awake, Oriented x3 Neuro motor strength exam: Left Upper Extremity: 5, Right Upper Extremity: 5, Left Lower Extremity: 5, Right Lower Extremity: 5 Additional comments: He is alert, oriented, follow simple commands. Sensation is intact. Assessment and Plan (1) Brain mass Assessment & Plan: Case discussed with Dr. Watt, continue all current medical, physical, and occupational therapies. Recommend to follow any orders from neurosurgery. Status: Acute (2) Headache Assessment & Plan: Case discussed with Dr. Watt, recommend Magnesium sulfate 2 gms IVPB for one dose. Depakote 500 mg IVPB for one dose. Recommend to repeat CT scan of the head without contrast. Status: Acute
--- NOTE | 2018-03-30 12:12 | CP.PCM.PN ---
Subjective - Date & Time of Evaluation Date of Evaluation: 03/30/18 Time of Evaluation: 12:10 - Subjective Subjective: fully awake alert oob moving all off manitol ok to transfer to floor further disposition as per pmd suggest cont decadron at 4mg q6 for 4 more days then wean to 2mg q6 for 4 days then keep at 2 mg q12 Objective - Vital Signs/Intake and Output Vital Signs (last 24 hours): Temp Pulse Resp BP Pulse Ox 97.7 F 70 14 131/63 94 L 03/30/18 08:00 03/30/18 10:00 03/30/18 10:00 03/30/18 10:00 03/30/18 10:00 Intake and Output: 03/30/18 03/30/18 06:59 18:59 Intake Total 0 400 Output Total 1500 Balance -1500 400 - Medications Medications: Current Medications Acetaminophen (Tylenol 325mg Tab) 650 mg PO Q6 PRN PRN Reason: Headache Amlodipine Besylate (Norvasc) 10 mg PO DAILY [facility] Last Admin: 03/30/18 08:26 Dose: 10 mg Dexamethasone (Decadron) 4 mg PO 0400,1000,1600,2200 [facility] Last Admin: 03/30/18 10:14 Dose: 4 mg Diphenhydramine HCl (Benadryl) 25 mg PO Q6 PRN PRN Reason: Allergy symptoms Last Admin: 03/27/18 16:26 Dose: 25 mg Levetiracetam 500 mg/ Sodium (Chloride) 105 mls @ 210 mls/hr IVPB Q12 [facility] Last Admin: 03/30/18 08:20 Dose: 210 mls/hr Nicardipine HCl (Cardene Iv Premix) 20 mg in 200 mls @ 50 mls/hr IV .Q4H [facility]; 5 MG/HR PRN Reason: Protocol Last Titration: 03/29/18 15:30 Dose: 0 mg/hr, 0 mls/hr Insulin Human Lispro (Humalog) 0 units SC ACHS [facility] PRN Reason: Protocol Last Admin: 03/30/18 11:41 Dose: Not Given Metoclopramide HCl (Reglan) 10 mg IVP Q6 PRN PRN Reason: Nausea/Vomiting Last Admin: 03/29/18 14:45 Dose: 10 mg Morphine Sulfate (Morphine) 4 mg IVP Q4 PRN PRN Reason: Pain, moderate (4-7) Oxycodone/Acetaminophen (Percocet 5/325 Mg Tab) 1 tab PO Q4 PRN PRN Reason: Pain, Mild (1-3) Stop: 04/01/18 10:38 Last Admin: 03/30/18 05:09 Dose: 1 tab - Labs Labs: 03/30/18 04:30 03/30/18 04:30 PT 10.9 Seconds (9.8-13.1) 03/27/18 04:20 INR 1.0 (0.9-1.2) 03/27/18 04:20 APTT 28.3 Seconds (25.6-37.1) 03/27/18 04:20
--- NOTE | 2018-03-30 12:24 | CARD ---
APPROVED REPORT EKG Measurement Heart [id number] <Conclusion> Normal sinus rhythm Prolonged QT Abnormal ECG
--- NOTE | 2018-03-30 12:36 | CT ---
PROCEDURE: CT scan brain dated 03/30/2018 HISTORY: Headache COMPARISON: Comparison made with prior CT scan brain and MRI brain dated 03/27/2018 and 03/26/2018 respectively. TECHNIQUE: Contiguous helical/transaxial computed tomography images were obtained through the head/brain without intravenous contrast. Radiation dose: Total exam DLP = 955.98 mGy-cm. Technique. This CT exam was performed using one or more of the following dose reduction techniques: Automated exposure control, adjustment of the mA and/or kV according to patient size, and/or use of iterative reconstruction technique. . FINDINGS: Interval of right temporoparietal craniotomy. Post resection and/or biopsy changes of previously noted large right sided cystic and solid mass lesion in the right temporal lobe. . Small residual surgical cavitation is present at which contains a small amount of air ; additionally, there is a small round/elliptical shaped hyperdense focus within anteromedial inferior margin of the cavitation possibly representing resorbable postsurgical material. . A small amount of postoperative hemorrhage along peripheral margins. . In addition, there is a curvilinear low attenuation material in the adjacent extra-axial space seen along the mid and inferior margin of the craniotomy defect which may also represent packing material. . Few small bubbles of air are present within about the surgical cavity .There is persistent significant vasogenic white matter edema throughout most of the right cerebral hemisphere. . Postoperative changes in the overlying scalp including the swelling edema and apparent tiny amount of amount of hemorrhage. Persistent large amount of residual vasogenic edema seen throughout most of the right cerebral hemisphere resulting in surrounding mass-effect. There is overlying sulcal effacement as well as compression of the right lateral ventricle that remain shifted across midline estimated approximately 11.5 mm. . . There is also a mild persistent dilatation of the left lateral ventricle due to mild compressive effects at the level of the left foramen of [place] IMPRESSION: Post resection and/or post biopsy changes of previously noted cystic and solid right temporal lobe mass. Small residual surgical cavitation with expected postoperative changes in and about the surgical cavitation. Probable packing material area in the extra-axial space overlying the surgical cavitation. Significant persistent vasogenic edema is seen throughout most of the right cerebral hemisphere which exerts considerable mass effect and [id number] midline shift as above.
--- NOTE | 2018-03-30 23:34 | CP.PCM.PN ---
Subjective - Date & Time of Evaluation Date of Evaluation: 03/30/18 Time of Evaluation: 15:20 Objective - Vital Signs/Intake and Output Vital Signs (last 24 hours): Temp Pulse Resp BP Pulse Ox 98.3 F 76 17 133/85 94 L 03/30/18 20:00 03/30/18 20:00 03/30/18 20:00 03/30/18 20:00 03/30/18 20:00 Intake and Output: 03/30/18 03/31/18 18:59 06:59 Intake Total 700 Balance 700 - Medications Medications: Current Medications Acetaminophen (Tylenol 325mg Tab) 650 mg PO Q6 PRN PRN Reason: Headache Amlodipine Besylate (Norvasc) 10 mg PO DAILY [facility] Last Admin: 03/30/18 08:26 Dose: 10 mg Dexamethasone (Decadron) 4 mg PO 0400,1000,1600,2200 [facility] Last Admin: 03/30/18 21:40 Dose: 4 mg Diphenhydramine HCl (Benadryl) 25 mg PO Q6 PRN PRN Reason: Allergy symptoms Last Admin: 03/27/18 16:26 Dose: 25 mg Levetiracetam 500 mg/ Sodium (Chloride) 105 mls @ 210 mls/hr IVPB Q12 [facility] Last Admin: 03/30/18 21:41 Dose: 210 mls/hr Nicardipine HCl (Cardene Iv Premix) 20 mg in 200 mls @ 50 mls/hr IV .Q4H [facility]; 5 MG/HR PRN Reason: Protocol Last Titration: 03/29/18 15:30 Dose: 0 mg/hr, 0 mls/hr Insulin Human Lispro (Humalog) 0 units SC ACHS [facility] PRN Reason: Protocol Last Admin: 03/30/18 21:32 Dose: Not Given Metoclopramide HCl (Reglan) 10 mg IVP Q6 PRN PRN Reason: Nausea/Vomiting Last Admin: 03/29/18 14:45 Dose: 10 mg Morphine Sulfate (Morphine) 4 mg IVP Q4 PRN PRN Reason: Pain, moderate (4-7) Oxycodone/Acetaminophen (Percocet 5/325 Mg Tab) 1 tab PO Q4 PRN PRN Reason: Pain, Mild (1-3) Stop: 04/01/18 10:38 Last Admin: 03/30/18 05:09 Dose: 1 tab - Labs Labs: 03/30/18 04:30 03/30/18 04:30 PT 10.9 Seconds (9.8-13.1) 03/27/18 04:20 INR 1.0 (0.9-1.2) 03/27/18 04:20 APTT 28.3 Seconds (25.6-37.1) 03/27/18 04:20
[2018-03-31] MEDS: Insulin Lispro (humaLOG) 100 Units/ml Inj SC SCH ×4 (06:32→23:52)
[2018-03-31] MEDS: Oxycodone/Acetaminophen 5/325 mg Tab PO PRN ×2 (07:37→22:31)
[2018-03-31] MEDS: levETIRAcetam 500 MG in Sodium Chloride 0.9% 100 ML IVPB SCH ×2 (09:47→22:12)
[2018-04-01] MEDS: Insulin Lispro (humaLOG) 100 Units/ml Inj SC SCH ×4 (08:40→22:15)
[2018-04-01] MEDS: levETIRAcetam 500 MG in Sodium Chloride 0.9% 100 ML IVPB SCH ×2 (08:43→21:08)
--- NOTE | 2018-04-01 10:01 | CP.PCM.PN ---
Subjective - Date & Time of Evaluation Date of Evaluation: 03/31/18 Time of Evaluation: 23:35 Objective - Vital Signs/Intake and Output Vital Signs (last 24 hours): Temp Pulse Resp BP Pulse Ox 98.1 F 63 18 120/71 95 04/01/18 09:00 04/01/18 09:00 04/01/18 09:00 04/01/18 09:00 04/01/18 09:00 - Medications Medications: Current Medications Acetaminophen (Tylenol 325mg Tab) 650 mg PO Q6 PRN PRN Reason: Headache Amlodipine Besylate (Norvasc) 10 mg PO DAILY [facility] Last Admin: 04/01/18 08:42 Dose: 10 mg Dexamethasone (Decadron) 4 mg PO 0400,1000,1600,2200 [facility] Last Admin: 04/01/18 03:53 Dose: 4 mg Diphenhydramine HCl (Benadryl) 25 mg PO Q6 PRN PRN Reason: Allergy symptoms Last Admin: 03/27/18 16:26 Dose: 25 mg Levetiracetam 500 mg/ Sodium (Chloride) 105 mls @ 210 mls/hr IVPB Q12 [facility] Last Admin: 04/01/18 08:43 Dose: 210 mls/hr Insulin Human Lispro (Humalog) 0 units SC ACHS [facility] PRN Reason: Protocol Last Admin: 04/01/18 08:40 Dose: Not Given Metoclopramide HCl (Reglan) 10 mg IVP Q6 PRN PRN Reason: Nausea/Vomiting Last Admin: 03/29/18 14:45 Dose: 10 mg Morphine Sulfate (Morphine) 4 mg IVP Q4 PRN PRN Reason: Pain, moderate (4-7) Oxycodone/Acetaminophen (Percocet 5/325 Mg Tab) 1 tab PO Q4 PRN PRN Reason: Pain, Mild (1-3) Stop: 04/01/18 10:38 Last Admin: 03/31/18 22:31 Dose: 1 tab - Labs Labs: 03/30/18 04:30 03/30/18 04:30 PT 10.9 Seconds (9.8-13.1) 03/27/18 04:20 INR 1.0 (0.9-1.2) 03/27/18 04:20 APTT 28.3 Seconds (25.6-37.1) 03/27/18 04:20
--- NOTE | 2018-04-01 16:54 | CP.PCM.PN ---
Subjective - Date & Time of Evaluation Date of Evaluation: 04/01/18 Time of Evaluation: 16:10 Objective - Vital Signs/Intake and Output Vital Signs (last 24 hours): Temp Pulse Resp BP Pulse Ox 98.1 F 63 18 120/71 95 04/01/18 09:00 04/01/18 09:00 04/01/18 09:00 04/01/18 09:00 04/01/18 09:00 - Medications Medications: Current Medications Acetaminophen (Tylenol 325mg Tab) 650 mg PO Q6 PRN PRN Reason: Headache Amlodipine Besylate (Norvasc) 10 mg PO DAILY [facility] Last Admin: 04/01/18 08:42 Dose: 10 mg Dexamethasone (Decadron) 4 mg PO 0400,1000,1600,2200 [facility] Last Admin: 04/01/18 11:26 Dose: 4 mg Diphenhydramine HCl (Benadryl) 25 mg PO Q6 PRN PRN Reason: Allergy symptoms Last Admin: 03/27/18 16:26 Dose: 25 mg Levetiracetam 500 mg/ Sodium (Chloride) 105 mls @ 210 mls/hr IVPB Q12 [facility] Last Admin: 04/01/18 08:43 Dose: 210 mls/hr Insulin Human Lispro (Humalog) 0 units SC ACHS [facility] PRN Reason: Protocol Last Admin: 04/01/18 11:56 Dose: 2 units Metoclopramide HCl (Reglan) 10 mg IVP Q6 PRN PRN Reason: Nausea/Vomiting Last Admin: 03/29/18 14:45 Dose: 10 mg Morphine Sulfate (Morphine) 4 mg IVP Q4 PRN PRN Reason: Pain, moderate (4-7) - Labs Labs: 03/30/18 04:30 03/30/18 04:30 PT 10.9 Seconds (9.8-13.1) 03/27/18 04:20 INR 1.0 (0.9-1.2) 03/27/18 04:20 APTT 28.3 Seconds (25.6-37.1) 03/27/18 04:20
[2018-04-02 08:20] VITALS: BP 115/70; RESP 20; TEMP 98
[2018-04-02] MEDS: Insulin Lispro (humaLOG) 100 Units/ml Inj SC SCH ×2 (08:29→12:45)
[2018-04-02] MEDS: levETIRAcetam 500 MG in Sodium Chloride 0.9% 100 ML IVPB SCH (08:30)
--- NOTE | 2018-04-02 10:40 | CP.PCM.PN ---
Subjective - Date & Time of Evaluation Date of Evaluation: 04/02/18 Time of Evaluation: 10:35 - Subjective Subjective: Mr. Chu was seen and examined at the bedside. he is alert, oriented in all spheres. He denies any headache, dizziness, lightheadedness. He also verbalize of ambulating within his room in steady gait. He has equal bilateral upper and lower extremities strength. Repeat CT scan of the head done 03/30/2018 showed post resection and/or post biopsy changes of previously noted cystic and solid right temporal lobe mass. Small residual surgical cavitation with expected postoperative changes in and about the surgical cavitation. Probable packing material area in the extra-axial space overlying the surgical cavitation. Significant persistent vasogenic edema is seen throughout most of the right cerebral hemisphere which exerts considerable mass effect and right to left midline shift. which is estimated 11.5 mm. There was no untoward events overnight. Objective - Vital Signs/Intake and Output Vital Signs (last 24 hours): Temp Pulse Resp BP Pulse Ox 98.0 F 61 20 115/70 97 04/02/18 08:19 04/02/18 08:32 04/02/18 08:19 04/02/18 08:32 04/02/18 08:19 - Medications Medications: Current Medications Acetaminophen (Tylenol 325mg Tab) 650 mg PO Q6 PRN PRN Reason: Headache Amlodipine Besylate (Norvasc) 10 mg PO DAILY [facility] Last Admin: 04/02/18 08:32 Dose: 10 mg Dexamethasone (Decadron) 4 mg PO 0400,1000,1600,2200 [facility] Last Admin: 04/02/18 09:50 Dose: 4 mg Diphenhydramine HCl (Benadryl) 25 mg PO Q6 PRN PRN Reason: Allergy symptoms Last Admin: 03/27/18 16:26 Dose: 25 mg Levetiracetam 500 mg/ Sodium (Chloride) 105 mls @ 210 mls/hr IVPB Q12 [facility] Last Admin: 04/02/18 08:30 Dose: 210 mls/hr Insulin Human Lispro (Humalog) 0 units SC ACHS [facility] PRN Reason: Protocol Last Admin: 04/02/18 08:29 Dose: Not Given Metoclopramide HCl (Reglan) 10 mg IVP Q6 PRN PRN Reason: Nausea/Vomiting Last Admin: 03/29/18 14:45 Dose: 10 mg - Labs Labs: 03/30/18 04:30 03/30/18 04:30 PT 10.9 Seconds (9.8-13.1) 03/27/18 04:20 INR 1.0 (0.9-1.2) 03/27/18 04:20 APTT 28.3 Seconds (25.6-37.1) 03/27/18 04:20 - Constitutional Appears: No Acute Distress - Head Exam Head Exam: NORMAL INSPECTION Additional comments: right temporal dressing intact - Neurological Exam Neurological Exam: Alert, Awake, Oriented x3 Neuro motor strength exam: Left Upper Extremity: 5, Right Upper Extremity: 5, Left Lower Extremity: 5, Right Lower Extremity: 5 Additional comments: Neurological unchanged from previous examination. Assessment and Plan (1) Brain mass Assessment & Plan: Case discussed with Dr. Dyson, continue all current medical, physical, and occupational therapies. Recommend to follow any orders from neurosurgeon for the treatment of the vasogenic edema. Recommend maintaing head of bed elevated for brain perfusion and may follow up with post surgery and seizure activity evaluation both outpatient neurosurgeon and neurology if patient is being discharge. Family has Dr. Watt calling card to make an appointment. Status: Acute
[2018-04-02 12:01] VITALS: PULSE 67; O2SAT 95
--- NOTE | 2018-04-02 18:47 | CP.PCM.DIS ---
Provider - Provider Date of Admission: 03/26/18 18:26 Attending physician: Ceci Clemons MD Time Spent in preparation of Discharge (in minutes): 25 Hospital Course - Lab Results Lab Results: Micro Results 03/30/18 09:14 Naris MRSA Culture (Admit) - Final MRSA NOT DETECTED 03/30/18 09:00 Nose MRSA Culture (Admit) - Final MRSA NOT DETECTED Most Recent Lab Values WBC 13.0 K/uL (4.8-10.8) H 03/30/18 04:30 RBC 4.84 Mil/uL (4.40-5.90) 03/30/18 04:30 Hgb 14.5 g/dL (12.0-18.0) 03/30/18 04:30 Hct 41.9 % (35.0-51.0) 03/30/18 04:30 MCV 86.7 fl (80.0-94.0) 03/30/18 04:30 MCH 30.0 pg (27.0-31.0) 03/30/18 04:30 MCHC 34.6 g/dL (33.0-37.0) 03/30/18 04:30 RDW 13.6 % (11.5-14.5) 03/30/18 04:30 Plt Count 233 K/uL (130-400) 03/30/18 04:30 MPV 8.7 fl (7.2-11.7) 03/26/18 16:38 Neut % (Auto) 69.2 % (50.0-75.0) 03/26/18 16:38 Lymph % (Auto) 20.3 % (20.0-40.0) 03/26/18 16:38 [place] % (Auto) 6.8 % (0.0-10.0) 03/26/18 16:38 Eos % (Auto) 2.9 % (0.0-4.0) 03/26/18 16:38 Baso % (Auto) 0.8 % (0.0-2.0) 03/26/18 16:38 Neut # (Auto) 5.7 K/uL (1.8-7.0) 03/26/18 16:38 Lymph # (Auto) 1.7 K/uL (1.0-4.3) 03/26/18 16:38 [place] # (Auto) 0.6 K/uL (0.0-0.8) 03/26/18 16:38 Eos # (Auto) 0.2 K/uL (0.0-0.7) 03/26/18 16:38 Baso # (Auto) 0.1 K/uL (0.0-0.2) 03/26/18 16:38 PT 10.9 Seconds (9.8-13.1) 03/27/18 04:20 INR 1.0 (0.9-1.2) 03/27/18 04:20 APTT 28.3 Seconds (25.6-37.1) 03/27/18 04:20 Sodium 140 mmol/l (132-148) 03/30/18 04:30 Potassium 4.0 MMOL/L (3.6-5.0) 03/30/18 04:30 Chloride 102 mmol/L (98-107) 03/30/18 04:30 Carbon Dioxide 22 mmol/L (22-30) 03/30/18 04:30 Anion Gap 20 (10-20) 03/30/18 04:30 BUN 17 mg/dl (9-20) 03/30/18 04:30 Creatinine 0.7 mg/dl (0.8-1.5) L 03/30/18 04:30 Est GFR ( Amer) > 60 03/30/18 04:30 Est GFR (Non-Af Amer) > 60 03/30/18 04:30 POC Glucose (mg/dL) 112 mg/dL (65-110) H 04/02/18 15:36 Random Glucose 141 mg/dL (75-110) H 03/30/18 04:30 Calcium 10.1 mg/dL (8.4-10.2) 03/30/18 04:30 Total Bilirubin 1.1 mg/dl (0.2-1.3) 03/30/18 04:30 AST 31 U/L (17-59) 03/30/18 04:30 ALT 49 U/L (21-72) 03/30/18 04:30 Alkaline Phosphatase 75 U/L (38-126) 03/30/18 04:30 Troponin I 0.0140 ng/mL (0.00-0.120) 03/26/18 16:38 Total Protein 7.4 G/DL (6.3-8.2) 03/30/18 04:30 Albumin 4.0 g/dL (3.5-5.0) 03/30/18 04:30 Globulin 3.4 gm/dL (2.2-3.9) 03/30/18 04:30 Albumin/Globulin Ratio 1.2 (1.0-2.1) 03/30/18 04:30 Blood Type O POSITIVE 03/27/18 12:30 Blood Type Confirm O POSITIVE 03/27/18 02:05 Antibody Screen Negative 03/27/18 12:30 Crossmatch See Detail 03/27/18 12:30 BBK History Checked No verified bt 03/27/18 12:30 Discharge Exam - Head Exam Head Exam: NORMAL INSPECTION Discharge Plan - Discharge Medications Prescriptions: Dexamethasone [Decadron] 2 mg PO 0400,1000,1600,2200 #24 tab Levetiracetam [Keppra] 500 mg PO BID #60 tablet Magnesium Oxide [Mag-Ox] 400 mg PO BID #60 tab amLODIPine [Norvasc] 10 mg PO DAILY #30 tab - Follow Up Plan Condition: FAIR Disposition: HOME/ ROUTINE Instructions: Headache, Adult (DC), Craniotomy (DC) Additional Instructions: follow up with primary MD and neuro 1 week pt. cleared for discharge to home today by , , f/u with , and outpatient Erx for all meds sent to pharmacy Referrals: Yoandy Pineda MD [Staff Provider] - Artem Bay MD [Staff Provider] - Giovani Watt MD [Medical Doctor] - Salina Gonzalez MD [Family Provider] -
== END 2018-04-02 15:45 | disposition home or self-care (01) | DRG 1 ==
LOC: H.ER 15:20 → H.ERHOLD 18:26 → H.ICU/CCU 22:16 → H.MEDSURG1 03-30 21:25
PROVIDERS: ADMIT Internal Medicine; ATTEND Internal Medicine
PROC: 3E0234Z Introduction of Serum, Toxoid and Vaccine into Muscle, Percutaneous Approach (ICD-10-PCS; 2018-03-27)
PROC: 00B70ZZ Excision of Cerebral Hemisphere, Open Approach (ICD-10-PCS; principal; 2018-03-28 09:00)
DX: C71.2 Malignant neoplasm of temporal lobe (principal); G91.1 Obstructive hydrocephalus; R20.0 Anesthesia of skin; I10 Essential (primary) hypertension; M17.11 Unilateral primary osteoarthritis, right knee; Z87.442 Personal history of urinary calculi; G93.6 Cerebral edema; E78.00 Pure hypercholesterolemia, unspecified; G43.909 Migraine, unspecified, not intractable, without status migrainosus; E66.01 Morbid (severe) obesity due to excess calories; Z68.41 Body mass index [BMI] 40.0-44.9, adult; M85.80 Other specified disorders of bone density and structure, unspecified site; Z23 Encounter for immunization

== ENCOUNTER 2018-07-14 10:22 | Emergency (ER) | payer MEDICAID ==
[2018-07-14 10:54] VITALS: BMI 57.6
--- NOTE | 2018-07-14 11:36 | ED PDOC ---
Lower Extremity Pain/Injury Time Seen by Provider: 07/14/18 11:04 Chief Complaint (Nursing): Lower Extremity Problem/Injury History Per: Patient History/Exam Limitations: no limitations Additional Complaint(s): 58-year-old male with past medical history of hydrocephalus, seizures and gout, presents to the emergency room for 3 day history of atraumatic left great toe and left ankle pain. Reports having gout in the past several years ago in the same foot. Patient reports swelling as well as pain, has been taking Tylenol without improvement. Patient states that he has called his PMD regarding the symptoms and was advised to go to the ER to be evaluated. Reports no fever, chills, fall, injury, calf swelling, calf pain, other joint pain. Patient has no other complaints. Past Medical History Vital Signs: Last Vital Signs Temp 98.5 F 07/14/18 10:52 Pulse 85 07/14/18 10:52 Resp 24 07/14/18 10:52 BP 112/68 07/14/18 10:52 Pulse Ox 97 07/14/18 10:52 - Medical History PMH: Arthritis (Right Knee), HTN, Migraine Denies: HIV, Kidney Stones, Chronic Kidney Disease - Family History Family History: States: No Known Family Hx - Home Medications Home Medications: Ambulatory Orders Medication Instructions Recorded Dexamethasone [Decadron] 2 mg PO 0400,1000,1600,2200 #24 tab 04/02/18 Levetiracetam [Keppra] 500 mg PO BID #60 tablet 04/02/18 Magnesium Oxide [Mag-Ox] 400 mg PO BID #60 tab 04/02/18 amLODIPine [Norvasc] 10 mg PO DAILY #30 tab 04/02/18 Colchicine [Colcrys] 0.6 mg PO DAILY #10 tab 07/14/18 traMADol [Ultram] 50 mg PO TID #15 tab 07/14/18 - Allergies Allergies/Adverse Reactions: Allergies Allergy/AdvReac Type Severity Reaction Status Date / Time No Known Allergies Allergy Verified 07/14/18 11:31 Review of Systems Constitutional: Negative for: Fever, Chills Musculoskeletal: Positive for: Foot Pain. Negative for: Neck Pain, Arm Pain, Back Pain Skin: Negative for: Rash, Lesions Physical Exam - Reviewed Vital Signs Reviewed: Yes - Physical Exam Appears: Positive for: Well, Non-toxic, In Acute Distress (+mild painful distress) Skin: Positive for: Normal Color, Warm, Dry Pulses-Dorsalis Pedis (L): 1+ Pulses-Dorsalis Pedis (R): 2+ Extremity: Positive for: Normal ROM, Pedal Edema (+mild edema to the L foot with moderate tenderness to palpation to the L 1st MTP joint and L medial ankle joint, without erythema, not warm to touch), Capillary Refill (<2 sec), Other. 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 Negative for: Motor/Sensory Deficits - ECG O2 Sat by Pulse Oximetry: 97 Medical Decision Making Medical Decision Making: Plan : - tramadol po 50 mg - indocin po 50 mg - colchicine po 1.2 mg now, 0.6 mg dose 1 hr later On reevaluation patient laying in bed comfortably in no acute distress. Patient reports improvement of pain. Patient is in good spirits and is cheerful at this time. He has been given his second dose of colchicine. Diagnosis of gout discussed with the patient in great detail. Based on history and exam, plan will be for outpatient follow-up. Advised to follow up with primary care physician in 1-2 days without fail. Advised to take medication as prescribed. Return to the emergency room at any time for any new or worsening symptoms. Patient states he fully agrees with and understands discharge instructions. States that he agrees with the plan and disposition. Verbalized and repeated discharge instructions and plan. I have given the patient opportunity to ask any additional questions. Disposition - Clinical Impression Clinical Impression: Gout - Patient ED Disposition Is Patient to be Admitted: No Counseled Patient/Family Regarding: Diagnosis, Need For Followup, Rx Given - Disposition Referrals: Mateus Umaña DPM [[facility]] - Disposition: Routine/Home Disposition Time: 12:30 Condition: STABLE Additional Instructions: Thank you for letting us take care of you today. You were treated for gout. The emergency medical care you received today was directed at your acute symptoms. If you were prescribed any medication, please fill it and take as directed. It may take several days for your symptoms to resolve. Return to the Emergency Department if your symptoms worsen, do not improve, or if you have any other problems. Please contact your doctor in 2 days for re-evaluation and follow up. Bring any paperwork you were given at discharge with you along with any medications you are taking to your follow up visit. Our treatment cannot replace ongoing medical care by a primary care provider (PCP) outside of the emergency department. Thank you for allowing the [facility] team to be part of your care today. 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
[2018-07-14 14:34] VITALS: BP 135/74; PULSE 68; RESP 18; TEMP 98.1
[2018-07-14 16:24] VITALS: O2SAT 97
== END 2018-07-14 14:20 | disposition home or self-care (01) ==
LOC: H.ER 10:22
DX: M10.9 Gout, unspecified (principal); I10 Essential (primary) hypertension